=== PATIENT | male | born 1960 | race Caucasian/White ===

== ENCOUNTER → 2017-04-22 | Outpatient (CLI) | payer BC ==
[2017-04-22 14:23] LABS: Anion Gap 10 mmol/L; Blood Urea Nitrogen 22 mg/dL (9-20); Calcium 9.4 mg/dL (8.4-10.2); Carbon Dioxide 26 mmol/L (22-30); Chloride 106 mmol/L (98-107); Glucose 175 mg/dL (74-99); Potassium 4.2 mmol/L (3.5-5.1); Sodium 142 mmol/L (137-145)
[2017-04-22 14:59] LABS: Basophils # (A) 0.1 k/uL (0-0.2); Basophils % (A) 1 %; Eosinophils # (A) 0.3 k/uL (0-0.7); Eosinophils % (A) 4 %; HCT 43.5 % (39.0-53.0); HGB 14.8 gm/dL (13.0-17.5); Lymphocytes # (A) 1.8 k/uL (1.0-4.8); Lymphocytes % (A) 20 %; MCH 29.1 pg (25.0-35.0); MCV 85.8 fL (80.0-100.0); Mean Platelet Volume 6.8; Monocytes # (A) 0.6 k/uL (0-1.0); Monocytes % (A) 7 %; Neutrophils % (A) 66 %; Platelet Count 301 k/uL (150-450); RBC 5.07 m/uL (4.30-5.90); RDW 12.8 % (11.5-15.5)
--- NOTE | 2017-04-22 16:46 | XR ---
EXAMINATION TYPE: XR KUB DATE OF EXAM: 04/22/2017 CLINICAL DATA: 56-year-old male presurgical evaluation, [facility] COMPARISON: 02/07/2010 FINDINGS: Nonobstructive bowel gas pattern. Supine imaging limited for assessment of free air. Scatte red mild to moderate stool in the right and transverse colons. Air extends distally to the rectum. No suspicious calcifications seen. Severe degenerative changes at the right hip. Bony deformity at the femoral head neck junction. Left hip total arthroplasty placed in the interval. IMPRESSION: Nonobstructive bowel gas pattern. Scattered mild to moderate stool. Severe right hip oste oarthrosis and possible congenital or posttraumatic deformity at the right femoral head neck junction .
== END | disposition home or self-care (01) ==
LOC: RADXRMAIN 13:23
PROVIDERS: ATTEND Physician Assistant
DX: Z01.818 Encounter for other preprocedural examination (principal); R10.9 Unspecified abdominal pain; N20.0 Calculus of kidney; Z79.899 Other long term (current) drug therapy
CPT/HCPCS: 36415; 74018; 80048; 85025

== ENCOUNTER 2018-06-16 13:25 | Inpatient (IN) | payer BC ==
[2018-06-16] MEDS ORDERED: SODIUM CHLORIDE 0.9% 500 ML 500 ML IV STA (13:54)
[2018-06-16] MEDS ORDERED: DILTIAZEM DRIP BOLUS FROM BAG 1 MG SOLN IV ONE (13:59)
--- NOTE | 2018-06-16 14:00 | ED ---
General Adult HPI - General Chief complaint: Recheck/Abnormal Lab/Rx Stated complaint: abn EKG Time Seen by Provider: 06/16/18 13:50 Source: patient, family, RN notes reviewed Mode of arrival: ambulatory Limitations: no limitations - History of Present Illness Initial comments: 58-year-old male with a past medical history of diabetes, hypertension presents to the emergency department due to new onset of atrial fibrillation. Patient states he has had a cold for the past several days so went to see his primary care physician when it was noted he was in atrial fibrillation. Patient does not have a history of atrial ablation. Patient does not feel lightheaded or short of breath. Patient states he is mainly concerned about his cough. Patient is not noted to be on any blood thinners.Patient has no other complaints at this time including shortness of breath, chest pain, abdominal pain, nausea or vomiting, headache, or visual changes. - Related Data Home Medications Medication Instructions Recorded Confirmed Atorvastatin [Lipitor] 20 mg PO DAILY 05/27/15 04/23/17 Losartan Potassium [Cozaar] 100 mg PO DAILY 05/27/15 04/23/17 Qnasl 80mcg 2 spray EA NOSTRIL DAILY 05/30/15 04/23/17 Amoxicillin 500 mg PO ONCE PRN 06/01/15 04/23/17 sitaGLIPtin [Januvia] 100 mg PO DAILY 04/23/17 04/23/17 metFORMIN HCL 1,000 mg PO BID 06/16/18 06/16/18 Allergies Allergy/AdvReac Type Severity Reaction Status Date / Time grass pollen Allergy ITCHY EYES Verified 06/16/18 15:26 Review of Systems ROS Statement: Those systems with pertinent positive or pertinent negative responses have been documented in the HPI. ROS Other: All systems not noted in ROS Statement are negative. Past Medical History Past Medical History: Diabetes Mellitus, Hypertension History of Any Multi-Drug Resistant Organisms: None Reported Past Surgical History: Appendectomy, Orthopedic Surgery, Tonsillectomy Additional Past Surgical History / Comment(s): nasal polyps. Past Psychological History: No Psychological Hx Reported Smoking Status: Never smoker Past Alcohol Use History: None Reported Past Drug Use History: None Reported General Exam Limitations: no limitations General appearance: alert, in no apparent distress Head exam: Present: atraumatic, normocephalic, normal inspection Eye exam: Present: normal appearance, PERRL, EOMI. Absent: scleral icterus, conjunctival injection, periorbital swelling ENT exam: Present: normal exam, normal oropharynx, mucous membranes moist, TM's normal bilaterally, normal external ear exam Neck exam: Present: normal inspection, full ROM. Absent: tenderness, meningismus, lymphadenopathy Respiratory exam: Present: normal lung sounds bilaterally. Absent: respiratory distress, wheezes, rales, rhonchi, stridor Cardiovascular Exam: Present: tachycardia, irregular rhythm. Absent: systolic murmur, diastolic murmur, rubs, gallop, clicks Neurological exam: Present: alert, oriented X3, CN II-XII intact Psychiatric exam: Present: normal affect, normal mood Course Vital Signs 06/16/18 06/16/18 06/16/18 13:36 13:52 13:53 Temperature 98.2 F Pulse Rate 47 L 124 H Respiratory 16 18 18 Rate Blood Pressure 115/61 130/93 O2 Sat by Pulse 96 97 Oximetry 06/16/18 06/16/18 06/16/18 14:37 15:07 16:12 Temperature Pulse Rate 122 H 103 H 123 H Respiratory 18 18 16 Rate Blood Pressure 121/76 118/95 125/107 O2 Sat by Pulse 98 98 97 Oximetry 06/16/18 16:20 Temperature 98.3 F Pulse Rate Respiratory Rate Blood Pressure O2 Sat by Pulse Oximetry - Reevaluation(s) Reevaluation #1: 06/16/18 14:13 Blood pressure is stable at this time 130/93 06/16/18 16:55 35 minutes of critical care time was performed in multiple reassessments of the patient, heparin and Cardizem orders, management of new onset atrial fibrillation with heart rate reaching up to 150s. EKG Findings - EKG Comments: EKG Findings:: Atrial fibrillation with RVR, vent rate 125, QRS 84, QTC 401 Medical Decision Making - Medical Decision Making 58-year-old male with a past medical history significant for diabetes, hypertension presents for new onset atrial fibrillation. Patient states he saw his primary care provider today for a cold when he was noted to be in atrial fibrillation. Does not feel lightheaded or short of breath. Patient is noted to have a heart rate anywhere between 100 - 150 at the highest. Blood pressure is stable. EKG does show atrial fibrillation with a ventricular rate in the 120s. Patient is well-appearing throughout his stay. CBC is unremarkable although there is a mild white count of 11.1 which is likely reactive. CMP does show a creatinine of 1.76 however patient denies any past renal disease. Patient was given fluids. Troponin and influenza are negative. Chest x-ray shows cardiomegaly. Patient was started on a 5 mg Cardizem bolus with a 5 mg drip. Discussed this with Dr. Claros who would like to maintain patient on a 5 mg drip. Patient also started on heparin to reduce risk of clot. Patient will be admitted to the hospital with cardiology consult. - Lab Data Result diagrams: 06/16/18 13:52 06/16/18 13:52 Lab Results 06/16/18 06/16/18 06/16/18 Range/Units 13:52 13:52 13:52 WBC 11.1 H (3.8-10.6) k/uL RBC 5.53 (4.30-5.90) m/uL Hgb 16.1 (13.0-17.5) gm/dL Hct 45.8 (39.0-53.0) % MCV 82.8 (80.0-100.0) fL MCH 29.2 (25.0-35.0) pg MCHC 35.2 (31.0-37.0) g/dL RDW 13.0 (11.5-15.5) % Plt Count 258 (150-450) k/uL Neutrophils % 72 % Lymphocytes % 17 % Monocytes % 7 % Eosinophils % 2 % Basophils % 0 % Neutrophils # 7.9 H (1.3-7.7) k/uL Lymphocytes # 1.8 (1.0-4.8) k/uL Monocytes # 0.8 (0-1.0) k/uL Eosinophils # 0.2 (0-0.7) k/uL Basophils # 0.1 (0-0.2) k/uL PT 10.5 (9.0-12.0) sec INR 1.0 (<1.2) APTT 23.0 (22.0-30.0) sec Sodium 141 (137-145) mmol/L Potassium 4.3 (3.5-5.1) mmol/L Chloride 111 H (98-107) mmol/L Carbon Dioxide 21 L (22-30) mmol/L Anion Gap 9 mmol/L BUN 17 (9-20) mg/dL Creatinine 1.76 H (0.66-1.25) mg/dL Est GFR (CKD-EPI)AfAm 48 (>60 ml/min/1.73 sqM) Est GFR (CKD-EPI)NonAf 42 (>60 ml/min/1.73 sqM) Glucose 143 H (74-99) mg/dL Calcium 9.1 (8.4-10.2) mg/dL Magnesium 1.9 (1.6-2.3) mg/dL Total Bilirubin 2.4 H (0.2-1.3) mg/dL AST 16 L (17-59) U/L ALT 21 (21-72) U/L Alkaline Phosphatase 89 (38-126) U/L Troponin I (0.000-0.034) ng/mL Total Protein 6.3 (6.3-8.2) g/dL Albumin 3.6 (3.5-5.0) g/dL Influenza Type A RNA (Not Detectd) Influenza Type B (PCR) (Not Detectd) 06/16/18 06/16/18 Range/Units 13:52 14:43 WBC (3.8-10.6) k/uL RBC (4.30-5.90) m/uL Hgb (13.0-17.5) gm/dL Hct (39.0-53.0) % MCV (80.0-100.0) fL MCH (25.0-35.0) pg MCHC (31.0-37.0) g/dL RDW (11.5-15.5) % Plt Count (150-450) k/uL Neutrophils % % Lymphocytes % % Monocytes % % Eosinophils % % Basophils % % Neutrophils # (1.3-7.7) k/uL Lymphocytes # (1.0-4.8) k/uL Monocytes # (0-1.0) k/uL Eosinophils # (0-0.7) k/uL Basophils # (0-0.2) k/uL PT (9.0-12.0) sec INR (<1.2) APTT (22.0-30.0) sec Sodium (137-145) mmol/L Potassium (3.5-5.1) mmol/L Chloride (98-107) mmol/L Carbon Dioxide (22-30) mmol/L Anion Gap mmol/L BUN (9-20) mg/dL Creatinine (0.66-1.25) mg/dL Est GFR (CKD-EPI)AfAm (>60 ml/min/1.73 sqM) Est GFR (CKD-EPI)NonAf (>60 ml/min/1.73 sqM) Glucose (74-99) mg/dL Calcium (8.4-10.2) mg/dL Magnesium (1.6-2.3) mg/dL Total Bilirubin (0.2-1.3) mg/dL AST (17-59) U/L ALT (21-72) U/L Alkaline Phosphatase (38-126) U/L Troponin I <0.012 (0.000-0.034) ng/mL Total Protein (6.3-8.2) g/dL Albumin (3.5-5.0) g/dL Influenza Type A RNA Not Detected (Not Detectd) Influenza Type B (PCR) Not Detected (Not Detectd) Disposition Clinical Impression: New onset atrial fibrillation, Acute kidney injury Disposition: ADMITTED IP TO THIS HOSP Condition: Fair Is patient prescribed a controlled substance at d/c from ED?: No Referrals: Negrito Bullock DO [Primary Care Provider] - 1-2 days Time of Disposition: 15:26
[2018-06-16 14:07] LABS: Basophils # (A) 0.1 k/uL (0-0.2); Basophils % (A) 0 %; Eosinophils # (A) 0.2 k/uL (0-0.7); Eosinophils % (A) 2 %; HCT 45.8 % (39.0-53.0); HGB 16.1 gm/dL (13.0-17.5); Lymphocytes # (A) 1.8 k/uL (1.0-4.8); Lymphocytes % (A) 17 %; MCH 29.2 pg (25.0-35.0); MCHC 35.2 g/dL (31.0-37.0); MCV 82.8 fL (80.0-100.0); Mean Platelet Volume 7.1; Monocytes # (A) 0.8 k/uL (0-1.0); Monocytes % (A) 7 %; Neutrophils # (A) 7.9 k/uL (1.3-7.7); Neutrophils % (A) 72 %; Platelet Count 258 k/uL (150-450); RBC 5.53 m/uL (4.30-5.90); WBC 11.1 k/uL (3.8-10.6)
[2018-06-16 14:19] LABS: Albumin 3.6 g/dL (3.5-5.0); Calcium 9.1 mg/dL (8.4-10.2); Magnesium 1.9 mg/dL (1.6-2.3); Potassium 4.3 mmol/L (3.5-5.1); Total Bilirubin 2.4 mg/dL (0.2-1.3); Total Protein 6.3 g/dL (6.3-8.2)
[2018-06-16 14:22] LABS: Prothrombin Time 10.5 sec (9.0-12.0)
--- NOTE | 2018-06-16 14:36 | XR ---
EXAMINATION TYPE: XR chest 2V DATE OF EXAM: 06/16/2018 COMPARISON: NONE HISTORY: Chest pain TECHNIQUE: Frontal and lateral views of the chest are obtained. FINDINGS: There is no focal air space opacity, pleural effusion, or pneumothorax seen. The cardiac silhouette size is enlarged, patient is rotated. The osseous structures are intact. There are overl erika cardiac leads. IMPRESSION: Cardiomegaly
[2018-06-16] MEDS: DILTIAZEM 125 MG in SODIUM CHLORIDE 0.9% 100 ML IV SCH (14:42)
[2018-06-16] MEDS ORDERED: HEPARIN SODIUM,PORCINE 5,000 UNIT/ML 1 ML VIAL IV ONE (15:27)
[2018-06-16] MEDS: HEPARIN SOD,PORK IN 0.45% NACL 25,000 UNIT in 0.45% NACL 1 250ML.BAG IV SCH (16:09)
[2018-06-16 17:29] LABS: Glucose,Whole Blood 125 mg/dL (75-99)
[2018-06-16] MEDS: INSULIN ASPART (NovoLOG) 100 UNIT/ML VIAL SQ SCH ×2 (17:46→21:56)
[2018-06-16 18:01] VITALS: BMI 35.9
[2018-06-16 21:14] LABS: Glucose,Whole Blood 115 mg/dL (75-99)
[2018-06-16] MEDS ORDERED: AMOXICILLIN 500 MG CAP PO PRN (21:15)
[2018-06-16] MEDS: guaiFENesin 600 MG TABLET.ER PO SCH (22:03)
[2018-06-16] MEDS: metFORMIN 500 MG TAB PO SCH (22:04)
[2018-06-16] MEDS: HEPARIN SODIUM,PORCINE 5,000 UNIT/ML 1 ML VIAL IV PRN (22:35)
[2018-06-17 05:32] LABS: Basophils # (A) 0.1 k/uL (0-0.2); Basophils % (A) 1 %; Eosinophils # (A) 0.4 k/uL (0-0.7); Eosinophils % (A) 4 %; HGB 14.8 gm/dL (13.0-17.5); Lymphocytes # (A) 1.9 k/uL (1.0-4.8); Lymphocytes % (A) 20 %; MCH 28.9 pg (25.0-35.0); MCHC 34.5 g/dL (31.0-37.0); MCV 83.8 fL (80.0-100.0); Mean Platelet Volume 7.2; Monocytes # (A) 0.7 k/uL (0-1.0); Monocytes % (A) 7 %; Neutrophils # (A) 6.2 k/uL (1.3-7.7); Neutrophils % (A) 66 %; Platelet Count 205 k/uL (150-450); RBC 5.13 m/uL (4.30-5.90); RDW 13.1 % (11.5-15.5); WBC 9.4 k/uL (3.8-10.6)
[2018-06-17 06:36] LABS: Glucose,Whole Blood 122 mg/dL (75-99)
[2018-06-17] MEDS: INSULIN ASPART (NovoLOG) 100 UNIT/ML VIAL SQ SCH ×4 (06:37→21:24)
[2018-06-17] MEDS: HEPARIN SODIUM,PORCINE 5,000 UNIT/ML 1 ML VIAL IV PRN (07:01)
[2018-06-17] MEDS: guaiFENesin 600 MG TABLET.ER PO SCH ×2 (08:27→20:29)
[2018-06-17] MEDS: LOSARTAN 50 MG TAB PO SCH (08:27)
[2018-06-17] MEDS: ATORVASTATIN 20 MG TAB PO SCH (08:28)
[2018-06-17] MEDS: metFORMIN 500 MG TAB PO SCH ×2 (08:28→20:29)
[2018-06-17] MEDS: QNASL EA NOSTRIL SCH (08:29)
[2018-06-17] MEDS: LINAGLIPTIN 5 MG TABLET PO SCH (08:35)
--- NOTE | 2018-06-17 10:29 | P.CRDCN ---
History of Present Illness History of present illness: This is Dr. Vaughn dictating a consult on this patient The patient was interviewed and examined by me IMPRESSION / ASSESSMENT: Atrial fibrillation with RVR Type 2 diabetes hemoglobin A1c greater than 9 line hypertension essential 2-D echo report pending but possibly reduced LV systolic function based upon preliminary assessment PLAN: Start metoprolol succinate 100 mg by mouth daily 1 dose now Anticoagulate with either Coumadin or the newer agents, ELIQUIS 5 mg twice daily, creatinine 1.76, weight 114 kg, age 58 HPI patient states he came in with symptoms of an upper respiratory infection No palpitations no chest pain no shortness of breath chest cough. No chest pain no abdominal pain no nausea vomiting he did feel a little feverish. He was found to be in atrial fibrillation with a rapid ventricular response. 2 serial troponins are normal. Creatinine was increased 1.76 He is a history of hypertension and diabetes He is on atorvastatin losartan and and diabetes medications He is a never smoker He sees Dr. Solorzano. Previously he was seeing Dr. Vernon Twelve-lead ECG shows atrial fibrillation with RVR up to 125 beats a minute He underwent 2-D echo study today and the pulmonary report is that he has reduced LV systolic function ROS: No fever chills or rigors, no cough, phlegm or expectoration, no nausea, vomiting or diarrhea, no hematuria, dysuria, no musculoskeletal complaints, no strokes or seizures, no skin lesions. EXAMINATION: Blood pressure 139/92 mmHg, afebrile, pulse rate on IV Cardizem is in the 80s and 90s, breathing is normal nonlabored Breath sounds are reduced bilaterally no rhonchi no crackles Heart sounds are irregular no murmurs or gallops or rub Abdomen soft Extended is warm no edema REVIEW OF LABS, ECG & MEDICAL DATA Normal white count normal hemoglobin Sodium 141 potassium 4.3 BUN 17 creatinine 1.76 2 normal troponins Past Medical History Past Medical History: Diabetes Mellitus, Hypertension History of Any Multi-Drug Resistant Organisms: None Reported Past Surgical History: Appendectomy, Orthopedic Surgery, Tonsillectomy Additional Past Surgical History / Comment(s): nasal polyps. Past Anesthesia/Blood Transfusion Reactions: No Reported Reaction Past Psychological History: No Psychological Hx Reported Smoking Status: Never smoker Past Alcohol Use History: None Reported Past Drug Use History: None Reported - Past Family History Father Family Medical History: Coronary Artery Disease (CAD), Myocardial Infarction ([place]) Additional Family Medical History / Comment(s): one month post CABG Mother Family Medical History: Cancer, CVA/TIA Additional Family Medical History / Comment(s): Breast Medications and Allergies Home Medications Medication Instructions Recorded Confirmed Type Atorvastatin [Lipitor] 20 mg PO DAILY 05/27/15 06/16/18 History Losartan Potassium [Cozaar] 100 mg PO DAILY 05/27/15 06/16/18 History Qnasl 80mcg 2 spray EA NOSTRIL DAILY 05/30/15 06/16/18 History Amoxicillin 2,000 mg PO ONCE PRN 06/01/15 06/16/18 History sitaGLIPtin [Januvia] 100 mg PO DAILY 04/23/17 06/16/18 History metFORMIN HCL 1,000 mg PO BID 06/16/18 06/16/18 History Allergies Allergy/AdvReac Type Severity Reaction Status Date / Time grass pollen Allergy ITCHY EYES Verified 06/16/18 15:26 Physical Exam Vitals: Vital Signs Temp Pulse Pulse Resp BP BP Pulse Ox 06/17/18 09:30 98 06/17/18 08:00 98.4 F 84 20 132/90 96 06/17/18 04:00 97.4 F L 93 18 139/92 97 06/17/18 00:00 97.7 F 93 18 137/91 98 06/16/18 20:00 98.1 F 18 130/81 98 06/16/18 17:25 98.6 F 71 149/87 97 06/16/18 16:20 98.3 F 06/16/18 16:12 123 H 16 125/107 97 06/16/18 15:07 103 H 18 118/95 98 06/16/18 14:37 122 H 18 121/76 98 06/16/18 13:53 18 06/16/18 13:52 124 H 18 130/93 97 06/16/18 13:36 98.2 F 47 L 16 115/61 96 Intake and Output 06/16/18 06/17/18 06/17/18 22:59 06:59 14:59 Intake Total 304.506 352.623 Output Total 1 Balance 304.506 -1 352.623 Intake: Intake, IV Titration 64.506 112.623 Amount Heparin Sod,Pork in 0.45% 64.506 112.623 NaCl 25,000 unit In 0.45 % NaCl 1 250ml.bag @ 8. 819 UNITS/KG/HR 10.001 mls/hr IV .Q24H [facility] Rx#: [id number] Oral 240 240 Output: Stool 1 Other: # Voids 1 1 Weight 114.1 kg 114.6 kg Results 06/17/18 04:59 06/16/18 13:52 Cardiac Enzymes 06/16/18 06/16/18 06/16/18 Range/Units 13:52 13:52 21:00 AST 16 L (17-59) U/L Troponin I <0.012 <0.012 (0.000-0.034) ng/mL 06/17/18 Range/Units 01:50 AST (17-59) U/L Troponin I <0.012 (0.000-0.034) ng/mL Coagulation 06/16/18 06/16/18 06/17/18 Range/Units 13:52 21:00 04:59 PT 10.5 (9.0-12.0) sec APTT 23.0 28.9 40.2 H (22.0-30.0) sec CBC 06/16/18 06/17/18 Range/Units 13:52 04:59 WBC 11.1 H 9.4 (3.8-10.6) k/uL RBC 5.53 5.13 (4.30-5.90) m/uL Hgb 16.1 14.8 (13.0-17.5) gm/dL Hct 45.8 43.0 (39.0-53.0) % Plt Count 258 205 (150-450) k/uL Comprehensive Metabolic Panel 06/16/18 Range/Units 13:52 Sodium 141 (137-145) mmol/L Potassium 4.3 (3.5-5.1) mmol/L Chloride 111 H (98-107) mmol/L Carbon Dioxide 21 L (22-30) mmol/L BUN 17 (9-20) mg/dL Creatinine 1.76 H (0.66-1.25) mg/dL Glucose 143 H (74-99) mg/dL Calcium 9.1 (8.4-10.2) mg/dL AST 16 L (17-59) U/L ALT 21 (21-72) U/L Alkaline Phosphatase 89 (38-126) U/L Total Protein 6.3 (6.3-8.2) g/dL Albumin 3.6 (3.5-5.0) g/dL Current Medications Generic Name Dose Route Start Last Admin Trade Name Freq PRN Reason Stop Dose Admin Atorvastatin Calcium 20 mg 06/17/18 09:00 06/17/18 08:28 Lipitor PO 20 mg DAILY ROSA Administration Guaifenesin 1,200 mg 06/16/18 21:30 06/17/18 08:27 Mucinex PO 1,200 mg Q12HR ROSA Administration Heparin Sodium (Porcine) 0 unit 06/16/18 15:27 06/17/18 07:01 Heparin IV 2,875 unit PER PROTOCOL PRN Administration Low PTT Protocol Diltiazem HCl 125 mg/ Sodium 125 mls @ 5 mls/hr 06/16/18 14:15 06/16/18 14:42 Chloride IV 5 mg/hr .Q24H ROSA 5 mls/hr Administration 5 MG/HR Heparin Sodium/Sodium Chloride 250 mls @ 10.001 mls/hr 06/16/18 15:30 06/17/18 07:01 25,000 unit/ Sodium Chloride IV 13.8 units/kg/hr .Q24H ROSA 15.649 mls/hr Titration Protocol 8.819 UNITS/KG/HR Insulin Aspart 0 unit 06/16/18 17:30 06/17/18 06:37 Novolog SQ Not Given ACHS ROSA Protocol Linagliptin 5 mg 06/17/18 09:00 06/17/18 08:35 Tradjenta PO 5 mg DAILY ROSA Administration Losartan Potassium 100 mg 06/17/18 09:00 06/17/18 08:27 Cozaar PO 100 mg DAILY ROSA Administration Metformin HCl 1,000 mg 06/16/18 21:30 06/17/18 08:28 Glucophage PO 1,000 mg BID ROSA Administration Qnasl 80mcg 2 spray 06/17/18 09:00 06/17/18 08:29 EA NOSTRIL Not Given DAILY ROSA Intake and Output 06/16/18 06/17/18 06/17/18 22:59 06:59 14:59 Intake Total 304.506 352.623 Output Total 1 Balance 304.506 -1 352.623 Intake: Intake, IV Titration 64.506 112.623 Amount Heparin Sod,Pork in 0.45% 64.506 112.623 NaCl 25,000 unit In 0.45 % NaCl 1 250ml.bag @ 8. 819 UNITS/KG/HR 10.001 mls/hr IV .Q24H [facility] Rx#: [id number] Oral 240 240 Output: Stool 1 Other: # Voids 1 1 Weight 114.1 kg 114.6 kg 06/17/18 04:59 06/16/18 13:52
[2018-06-17] MEDS: HEPARIN SOD,PORK IN 0.45% NACL 25,000 UNIT in 0.45% NACL 1 250ML.BAG IV SCH ×2 (11:54→17:27)
[2018-06-17] MEDS: METOPROLOL SUCCINATE (ER) 100 MG TAB.ER.24H PO SCH (11:54)
[2018-06-17] MEDS: APIXABAN 5 MG TAB PO SCH ×2 (11:54→20:29)
--- NOTE | 2018-06-17 12:00 | ECHOF ---
Referral Reason:new onset afib MEASUREMENTS -------- HEIGHT: 177.8 cm WEIGHT: 113.9 kg BP: 139/92 RVIDd: 3.5 cm (< 3.3) IVSd: 1.3 cm (0.6 - 1.1) LVIDd: 5.8 cm (3.9 - 5.3) LVPWd: 1.4 cm (0.6 - 1.1) IVSs: 1.7 cm LVIDs: 5.1 cm LVPWs: 1.6 cm LA Diam: 4.5 cm (2.7 - 3.8) LAESV Index (A-L): 32.96 ml/m Ao Diam: 3.6 cm (2.0 - 3.7) AV Cusp: 2.0 cm (1.5 - 2.6) MV EXCURSION: 20.130 mm (> 18.000) MV EF SLOPE: 226 mm/s (70 - 150) EPSS: 0.7 cm RAP: 5.00 mmHg RVSP: 44.35 mmHg FINDINGS -------- Atrial fibrillation. This was a technically adequate study. The left ventricular size is normal. There is moderate concentric left ventricular hypertrophy. O verall left ventricular systolic function is mild-moderately impaired with, an EF between 40 - 45 %. The right ventricle is mildly enlarged. LA is midly dilated 29-33ml/m2. The right atrium is normal in size. There is mild aortic valve sclerosis. The mitral valve leaflets are mildly thickened. Mild mitral annular calcification present. Mild m itral regurgitation is present. Mild tricuspid regurgitation present. There is mild pulmonary hypertension. The right ventricular systolic pressure, as measured by Doppler, is 44.35mmHg. There is no pulmonic regurgitation present. The aortic root size is normal. Normal inferior vena cava with normal inspiratory collapse consistent with estimated right atrial pre ssure of 5 mmHg. There is no pericardial effusion. CONCLUSIONS -------- 1. Atrial fibrillation. 2. This was a technically adequate study. 3. The left ventricular size is normal. 4. There is moderate concentric left ventricular hypertrophy. 5. Overall left ventricular systolic function is mild-moderately impaired with, an EF between 40 - 45 %. 6. The right ventricle is mildly enlarged. 7. LA is midly dilated 29-33ml/m2. 8. The right atrium is normal in size. 9. There is mild aortic valve sclerosis. 10. The mitral valve leaflets are mildly thickened. 11. Mild mitral annular calcification present. 12. Mild mitral regurgitation is present. 13. Mild tricuspid regurgitation present. 14. There is mild pulmonary hypertension. 15. The right ventricular systolic pressure, as measured by Doppler, is 44.35mmHg. 16. There is no pulmonic regurgitation present. 17. The aortic root size is normal. 18. Normal inferior vena cava with normal inspiratory collapse consistent with estimated right atrial pressure of 5 mmHg. 19. There is no pericardial effusion. NURSE CHARGE RN: Monique Lee RDCS
[2018-06-17 12:03] LABS: Glucose,Whole Blood 107 mg/dL (75-99)
[2018-06-17 12:51] LABS: Hemoglobin A1C 7.4 % (4.0-6.0)
[2018-06-17] MEDS: DILTIAZEM 125 MG in SODIUM CHLORIDE 0.9% 100 ML IV SCH (13:21)
[2018-06-17 16:45] LABS: Glucose,Whole Blood 120 mg/dL (75-99)
[2018-06-17 21:18] LABS: Glucose,Whole Blood 108 mg/dL (75-99)
--- NOTE | 2018-06-17 21:43 | P.HPIM ---
History of Present Illness H&P Date: 06/17/18 This a pleasant 58-year-old white male who was admitted to the hospital after being directly sent from the office. He comes in with shortness of breath and tachycardia and apparent cold for a few days. He denied any chest pain he admits to shortness of breath especially with exertion. Is found to be in A. fib with rapid ventricular response of heart rate in the 130 he's feeling a little bit better today but still has his cold symptoms. His chest x-ray was normal he is currently undergoing echocardiogram at time of examination. Review of Systems GENERAL: Patient denies fever. Denies chills. EYES: Denies blurred vision. Denies vision changes. Denies eye pain. EARS, NOSE, MOUTH, & THROAT: Denies headache. Denies sore throat. Denies ear pain. RESPIRATORY: Admits to cough with shortness of breath. Denies sputum production. Denies hemoptysis. CARDIOVASCULAR: Denies chest pain or pressure. palpitations. Denies previous arrhythmias. GASTROINTESTINAL: Denies abdominal pain. Denies diarrhea. Denies constipation. Denies nausea. Denies vomiting. Denies heartburn. Denies blood in the stool. GENITOURINARY: Denies urinary frequency. Denies burning. Denies dysuria. Denies cloudy urine. Denies blood in the urine. MUSCULOSKELETAL: Denies myalgias. Denies joint swelling. Denies decreased range of motion beyond patients baseline. INTEGUMENTARY: Denies pruitis. Denies rash. PSYCHIATRIC: Denies suicidal or homicial ideations. ENDOCRINE: Admits to diabetes last A1c was 9.. HEMATOLOGIC: Denies bleeding disorders. Past Medical History Past Medical History: Diabetes Mellitus, Hypertension History of Any Multi-Drug Resistant Organisms: None Reported Past Surgical History: Appendectomy, Orthopedic Surgery, Tonsillectomy Additional Past Surgical History / Comment(s): nasal polyps. Past Anesthesia/Blood Transfusion Reactions: No Reported Reaction Past Psychological History: No Psychological Hx Reported Smoking Status: Never smoker Past Alcohol Use History: None Reported Past Drug Use History: None Reported - Past Family History Father Family Medical History: Coronary Artery Disease (CAD), Myocardial Infarction ([place]) Additional Family Medical History / Comment(s): one month post CABG Mother Family Medical History: Cancer, CVA/TIA Additional Family Medical History / Comment(s): Breast Medications and Allergies Home Medications Medication Instructions Recorded Confirmed Type Atorvastatin [Lipitor] 20 mg PO DAILY 05/27/15 06/16/18 History Losartan Potassium [Cozaar] 100 mg PO DAILY 05/27/15 06/16/18 History Qnasl 80mcg 2 spray EA NOSTRIL DAILY 05/30/15 06/16/18 History Amoxicillin 2,000 mg PO ONCE PRN 06/01/15 06/16/18 History sitaGLIPtin [Januvia] 100 mg PO DAILY 04/23/17 06/16/18 History metFORMIN HCL 1,000 mg PO BID 06/16/18 06/16/18 History Allergies Allergy/AdvReac Type Severity Reaction Status Date / Time grass pollen Allergy ITCHY EYES Verified 06/16/18 15:26 Physical Exam Osteopathic Statement: *. No significant issues noted on an osteopathic structural exam other than those noted in the History and Physical/Consult. Vitals: Vital Signs Temp Pulse Resp BP Pulse Ox 06/17/18 21:09 95 06/17/18 16:00 98.1 F 78 20 128/77 97 06/17/18 12:00 97.7 F 80 20 145/98 98 06/17/18 09:30 98 06/17/18 08:00 98.4 F 84 20 132/90 96 06/17/18 04:00 97.4 F L 93 18 139/92 97 06/17/18 00:00 97.7 F 93 18 137/91 98 Intake and Output 06/17/18 06/17/18 06/17/18 06:59 14:59 22:59 Intake Total 820.996 263.25 Output Total 1 Balance -1 820.996 263.25 Intake: Intake, IV Titration 340.996 23.25 Amount Diltiazem 125 mg In 113.25 23.25 Sodium Chloride 0.9% 100 ml @ 5 MG/HR 5 mls/hr IV .Q24H ROSA Rx#:[id number] Heparin Sod,Pork in 0.45% 227.746 NaCl 25,000 unit In 0.45 % NaCl 1 250ml.bag @ 8. 819 UNITS/KG/HR 10.001 mls/hr IV .Q24H ROSA Rx#: [id number] Oral 480 240 Output: Stool 1 Other: # Voids 1 1 Weight 114.6 kg GENERAL: This is a -58 year-old in no apparent distress at the time of examination. Pleasant and cooperative. HEENT: Head is atraumatic, normocephalic. Pupils are equal, round, and reactive to light. Sclerae anicteric. Conjunctivae are clear. Mucus membranes of the mouth are moist. Neck is supple. RESPIRATORY: Bilateral wheezes, . No use of accessory muscles. No chest wall tenderness is noted on palpation or with deep breathing. CARDIOVASCULAR: Irregular irregularity consistent with A. fib. GASTROINTESTINAL: No distention noted. Abdomen soft and round. Normal active bowel sounds auscultated x 4 quadrants. No pain or tenderness noted upon palpation. INTEGUMENTARY: No cyanosis. No jaundice. No rashes noted. No cellulitis noted. EXTREMITIES: 2+ peripheral pulses. No evidence of peripheral edema. No calf tenderness noted. NEUROLOGIC: Cranial nerves II-XII intact. PSYCHIATRIC: Awake, alert, and oriented X 3. Appropriate affect. Intact judgement and insight. Results CBC & Chem 7: 06/17/18 04:59 06/16/18 13:52 Labs: Abnormal Lab Results - Last 24 Hours (Table) 06/17/18 06/17/18 06/17/18 Range/Units 04:59 04:59 06:32 APTT 40.2 H (22.0-30.0) sec POC Glucose (mg/dL) 122 H (75-99) mg/dL Hemoglobin A1c 7.4 H (4.0-6.0) % 06/17/18 06/17/18 06/17/18 Range/Units 11:56 13:28 16:38 APTT 49.5 H (22.0-30.0) sec POC Glucose (mg/dL) 107 H 120 H (75-99) mg/dL Hemoglobin A1c (4.0-6.0) % 06/17/18 Range/Units 21:17 APTT (22.0-30.0) sec POC Glucose (mg/dL) 108 H (75-99) mg/dL Hemoglobin A1c (4.0-6.0) % Thrombosis Risk Factor Assmnt - DVT/VTE Prophylaxis DVT/VTE Prophylaxis: Pharmacologic Prophylaxis ordered - Choose All That Apply Each Factor Represents 1 point: Age 41-60 years Thrombosis Risk Factor Assessment Total Risk Factor Score: 1 Thrombosis Risk Factor Assessment Level: Low Risk Assessment and Plan (1) Diabetes type 2, uncontrolled Current Visit: Yes Status: Acute Code(s): E11.65 - TYPE 2 DIABETES MELLITUS WITH HYPERGLYCEMIA SNOMED Code(s): 263608144 (2) Atrial fibrillation with RVR Current Visit: Yes Status: Acute Code(s): I48.91 - UNSPECIFIED ATRIAL FIBRILLATION SNOMED Code(s): 493082201062863 (3) Acute bronchitis, viral Current Visit: Yes Status: Acute Code(s): J20.8 - ACUTE BRONCHITIS DUE TO OTHER SPECIFIED ORGANISMS SNOMED Code(s): 240062482 (4) Acute kidney injury Current Visit: Yes Status: Acute Code(s): N17.9 - ACUTE KIDNEY FAILURE, UNSPECIFIED SNOMED Code(s): 12977493 (5) New onset atrial fibrillation Current Visit: Yes Status: Acute Code(s): I48.91 - UNSPECIFIED ATRIAL FIBRILLATION SNOMED Code(s): 75857325 Plan: Admit patient to cardiac unit currently on heparin drip currently and DVT prophylaxis. Cardiology to consult and possible cardioversion. Check echocardiogram for possible ischemic event. Serial EKGs serial enzymes and progress.
[2018-06-18 05:49] LABS: Glucose,Whole Blood 141 mg/dL (75-99)
[2018-06-18] MEDS: INSULIN ASPART (NovoLOG) 100 UNIT/ML VIAL SQ SCH ×4 (06:09→21:23)
[2018-06-18 07:22] LABS: Basophils # (A) 0.1 k/uL (0-0.2); Basophils % (A) 0 %; Eosinophils # (A) 0.2 k/uL (0-0.7); Eosinophils % (A) 2 %; HCT 41.5 % (39.0-53.0); HGB 14.2 gm/dL (13.0-17.5); Lymphocytes # (A) 1.4 k/uL (1.0-4.8); Lymphocytes % (A) 12 %; MCH 29.3 pg (25.0-35.0); MCHC 34.3 g/dL (31.0-37.0); MCV 85.4 fL (80.0-100.0); Monocytes # (A) 0.9 k/uL (0-1.0); Monocytes % (A) 7 %; Neutrophils # (A) 9.6 k/uL (1.3-7.7); Neutrophils % (A) 78 %; Platelet Count 200 k/uL (150-450); RBC 4.86 m/uL (4.30-5.90); RDW 13.2 % (11.5-15.5); WBC 12.3 k/uL (3.8-10.6)
[2018-06-18] MEDS: METOPROLOL SUCCINATE (ER) 100 MG TAB.ER.24H PO SCH (08:40)
[2018-06-18] MEDS: LINAGLIPTIN 5 MG TABLET PO SCH (08:41)
[2018-06-18] MEDS: LOSARTAN 50 MG TAB PO SCH (08:41)
[2018-06-18] MEDS: ATORVASTATIN 20 MG TAB PO SCH (08:41)
[2018-06-18] MEDS: metFORMIN 500 MG TAB PO SCH ×2 (08:41→21:27)
[2018-06-18] MEDS: guaiFENesin 600 MG TABLET.ER PO SCH ×2 (08:41→21:27)
[2018-06-18] MEDS: APIXABAN 5 MG TAB PO SCH ×2 (08:41→21:27)
[2018-06-18] MEDS: QNASL EA NOSTRIL SCH (08:42)
[2018-06-18 10:30] LABS: Calcium 8.5 mg/dL (8.4-10.2); Potassium 4.5 mmol/L (3.5-5.1)
--- NOTE | 2018-06-18 10:56 | P.PN ---
Subjective Patient is resting comfortably in a chair. He says he still has a cold but he does not appear to be short of breath he denies any chest discomfort His ventricular rates during atrial fibrillation are better controlled on beta blockers, metoprolol succinate 100 mg by mouth daily Rhythm is irregular Breath sounds are clear no rhonchi no crackles Normal heart sounds no murmurs Abdomen soft nontender Minimal lower extremity edema 2-D echo report was reviewed left radical ejection fraction 40-45% RV enlargement Plan was discussed the patient and with Dr. Solorzano I would recommend continuing ELIQUIS and metoprolol succinate and proceeding with a SHANELL and electrical cardioversion on this admission line losartan and statins should continue Outpatient reevaluation of cardio myopathy to see if there is any improvement in LV function during sinus rhythm TSH is normal at 1.1 Objective - Vital Signs Vital signs: Vital Signs Temp 98.4 F 06/18/18 08:15 Pulse 78 06/18/18 08:15 Resp 18 06/18/18 08:15 BP 140/97 06/18/18 08:15 Pulse Ox 95 06/18/18 08:15 Intake & Output 06/17/18 06/18/18 06/18/18 18:59 06:59 18:59 Intake Total 1084.246 150 600 Balance 1084.246 150 600 Weight 116.2 kg Intake: Intake, IV Titration 364.246 Amount Diltiazem 125 mg In 136.50 Sodium Chloride 0.9% 100 ml @ 5 MG/HR 5 mls/hr IV .Q24H ROSA Rx#:[id number] Heparin Sod,Pork in 0.45% 227.746 NaCl 25,000 unit In 0.45 % NaCl 1 250ml.bag @ 8. 819 UNITS/KG/HR 10.001 mls/hr IV .Q24H ROSA Rx#: [id number] Oral 720 150 600 Other: # Voids 1 - Labs CBC & Chem 7: 06/18/18 06:43 06/18/18 06:43 Labs: Abnormal Lab Results - Last 24 Hours (Table) 06/17/18 06/17/18 06/17/18 Range/Units 04:59 11:56 13:28 WBC (3.8-10.6) k/uL Neutrophils # (1.3-7.7) k/uL APTT 49.5 H (22.0-30.0) sec Chloride (98-107) mmol/L Creatinine (0.66-1.25) mg/dL Glucose (74-99) mg/dL POC Glucose (mg/dL) 107 H (75-99) mg/dL Hemoglobin A1c 7.4 H (4.0-6.0) % 06/17/18 06/17/18 06/18/18 Range/Units 16:38 21:17 05:47 WBC (3.8-10.6) k/uL Neutrophils # (1.3-7.7) k/uL APTT (22.0-30.0) sec Chloride (98-107) mmol/L Creatinine (0.66-1.25) mg/dL Glucose (74-99) mg/dL POC Glucose (mg/dL) 120 H 108 H 141 H (75-99) mg/dL Hemoglobin A1c (4.0-6.0) % 06/18/18 06/18/18 Range/Units 06:43 06:43 WBC 12.3 H (3.8-10.6) k/uL Neutrophils # 9.6 H (1.3-7.7) k/uL APTT (22.0-30.0) sec Chloride 110 H (98-107) mmol/L Creatinine 1.72 H (0.66-1.25) mg/dL Glucose 137 H (74-99) mg/dL POC Glucose (mg/dL) (75-99) mg/dL Hemoglobin A1c (4.0-6.0) %
[2018-06-18 11:41] LABS: Glucose,Whole Blood 128 mg/dL (75-99)
--- NOTE | 2018-06-18 15:46 | P.PN ---
Subjective Progress Note Date: 06/18/18 Interval history:This a pleasant 58-year-old white male who was admitted to the hospital after being directly sent from the office. He comes in with shortness of breath and tachycardia and apparent cold for a few days. He denied any chest pain he admits to shortness of breath especially with exertion. Is found to be in A. fib with rapid ventricular response of heart rate in the 130 he's feeling a little bit better today but still has his cold symptoms. His chest x-ray was normal he is currently undergoing echocardiogram at time of examination. 06/18/2018 Telemetry reporting controlled atrial fibrillation. Troponins negative 3. Creatinine 1.72. Maintained on metoprolol, anticoagulated on Eliquis. Sitting up in chair, denies chest pain, palpitations or shortness of breath. Echo reporting moderately impaired LV function EF 40-45% with mild right ventricular enlargement.Evaluated by cardiology, recommending SHANELL with cardioversion. Afebrile, WBC 12.3.TSH normal. Objective - Vital Signs Vital signs: Vital Signs Temp 98.4 F 06/18/18 08:15 Pulse 78 06/18/18 08:15 Resp 18 06/18/18 08:15 BP 140/97 06/18/18 08:15 Pulse Ox 95 06/18/18 08:15 Intake & Output 06/17/18 06/18/18 06/18/18 18:59 06:59 18:59 Intake Total 1084.246 150 600 Balance 1084.246 150 600 Weight 116.2 kg Intake: Intake, IV Titration 364.246 Amount Diltiazem 125 mg In 136.50 Sodium Chloride 0.9% 100 ml @ 5 MG/HR 5 mls/hr IV .Q24H ROSA Rx#:[id number] Heparin Sod,Pork in 0.45% 227.746 NaCl 25,000 unit In 0.45 % NaCl 1 250ml.bag @ 8. 819 UNITS/KG/HR 10.001 mls/hr IV .Q24H ROSA Rx#: [id number] Oral 720 150 600 Other: # Voids 1 - Exam GENERAL: Alert and oriented test today, no acute distress, sitting up in a chair HEENT: Head is atraumatic, normocephalic. Pupils are equal, round, and reactive to light. Sclerae anicteric. Conjunctivae are clear. Mucus membranes of the mouth are moist. Neck is supple. RESPIRATORY: Respiratory effort normal, unlabored. Essentially clear, bilateral bases diminished, no rhonchi, no crackles CARDIOVASCULAR: Irregular irregularity consistent with A. fib., Controlled ventricular rate GASTROINTESTINAL: Abdomen soft, nondistended. Nontender .Normal active bowel sounds . No masses palpable .No guarding or rigidity INTEGUMENTARY: No cyanosis. No jaundice. No rashes noted. No cellulitis noted. EXTREMITIES: 2+ peripheral pulses. Trace peripheral edema. No calf tenderness noted. NEUROLOGIC: Cranial nerves II-XII intact. No focal deficits. PSYCHIATRIC: Awake, alert, and oriented X 3. Appropriate affect. Intact judgement and insight. - Labs CBC & Chem 7: 06/18/18 06:43 06/18/18 06:43 Labs: Abnormal Lab Results - Last 24 Hours (Table) 06/17/18 06/17/18 06/17/18 Range/Units 04:59 11:56 13:28 WBC (3.8-10.6) k/uL Neutrophils # (1.3-7.7) k/uL APTT 49.5 H (22.0-30.0) sec Chloride (98-107) mmol/L Creatinine (0.66-1.25) mg/dL Glucose (74-99) mg/dL POC Glucose (mg/dL) 107 H (75-99) mg/dL Hemoglobin A1c 7.4 H (4.0-6.0) % 06/17/18 06/17/18 06/18/18 Range/Units 16:38 21:17 05:47 WBC (3.8-10.6) k/uL Neutrophils # (1.3-7.7) k/uL APTT (22.0-30.0) sec Chloride (98-107) mmol/L Creatinine (0.66-1.25) mg/dL Glucose (74-99) mg/dL POC Glucose (mg/dL) 120 H 108 H 141 H (75-99) mg/dL Hemoglobin A1c (4.0-6.0) % 06/18/18 06/18/18 Range/Units 06:43 06:43 WBC 12.3 H (3.8-10.6) k/uL Neutrophils # 9.6 H (1.3-7.7) k/uL APTT (22.0-30.0) sec Chloride 110 H (98-107) mmol/L Creatinine 1.72 H (0.66-1.25) mg/dL Glucose 137 H (74-99) mg/dL POC Glucose (mg/dL) (75-99) mg/dL Hemoglobin A1c (4.0-6.0) % Assessment and Plan Assessment: (1) Diabetes type 2, controlled Current Visit: Yes Status: Acute Code(s): E11.65 - TYPE 2 DIABETES MELLITUS WITH HYPERGLYCEMIA SNOMED Code(s): 526162480 (2) Atrial fibrillation with RVR Current Visit: Yes Status: Acute Code(s): I48.91 - UNSPECIFIED ATRIAL FIBRILLATION SNOMED Code(s): 465691132687004 (3) Acute bronchitis, viral Current Visit: Yes Status: Acute Code(s): J20.8 - ACUTE BRONCHITIS DUE TO OTHER SPECIFIED ORGANISMS SNOMED Code(s): 692382444 (4) Acute kidney injury Current Visit: Yes Status: Acute Code(s): N17.9 - ACUTE KIDNEY FAILURE, UNSPECIFIED SNOMED Code(s): 21455808 (5) New onset atrial fibrillation Current Visit: Yes Status: Acute Code(s): I48.91 - UNSPECIFIED ATRIAL FIBRILLATION SNOMED Code(s): 88783841 Plan: Continue current medication regime ,monitoring and symptomatic treatment. GI and DVT prophylaxis maintained. Anticoagulated on Eliquis. Scheduled for SHANELL with cardioversion as per cardiology tomorrow. Close monitoring of renal function with repeat labs ordered for a.m. The impression and plan of care has been dictated as directed. : I performed a history and examination of this patient, discussed the same with the dictator. I agree with the dictator's note ,documented as a scribe. Any additional findings or plans will be noted.
[2018-06-18 16:54] LABS: Glucose,Whole Blood 144 mg/dL (75-99)
[2018-06-18 20:44] LABS: Glucose,Whole Blood 149 mg/dL (75-99)
[2018-06-19] MEDS: LOSARTAN 50 MG TAB PO SCH (05:17)
[2018-06-19] MEDS: ATORVASTATIN 20 MG TAB PO SCH (05:17)
[2018-06-19] MEDS: METOPROLOL SUCCINATE (ER) 100 MG TAB.ER.24H PO SCH (05:17)
[2018-06-19] MEDS: guaiFENesin 600 MG TABLET.ER PO SCH ×2 (05:17→21:05)
[2018-06-19] MEDS: INSULIN ASPART (NovoLOG) 100 UNIT/ML VIAL SQ SCH ×4 (05:18→20:59)
[2018-06-19] MEDS: APIXABAN 5 MG TAB PO SCH ×2 (05:18→21:05)
[2018-06-19 05:58] LABS: Glucose,Whole Blood 121 mg/dL (75-99)
[2018-06-19] MEDS: BENZOCAINE SPRAY 1 CAN MUCOUS MEM ONE ×2 (07:22→07:24)
[2018-06-19] MEDS ORDERED: LIDOCAINE 1% INJ 10MG/ML (20 ML MDV) ONE (07:23)
[2018-06-19] MEDS ORDERED: PROPOFOL 10 MG/ML 20 ML VIAL IV ONE (07:23)
[2018-06-19] MEDS ORDERED: SODIUM CHLORIDE 0.9% 1,000 ML IV ONE ×2 (07:29)
[2018-06-19 07:31] LABS: Basophils # (A) 0.1 k/uL (0-0.2); Basophils % (A) 1 %; Eosinophils # (A) 0.3 k/uL (0-0.7); Eosinophils % (A) 2 %; HGB 14.4 gm/dL (13.0-17.5); Lymphocytes # (A) 1.5 k/uL (1.0-4.8); Lymphocytes % (A) 12 %; MCH 29.1 pg (25.0-35.0); MCHC 32.8 g/dL (31.0-37.0); MCV 88.6 fL (80.0-100.0); Mean Platelet Volume 7.1; Monocytes # (A) 0.8 k/uL (0-1.0); Monocytes % (A) 6 %; Neutrophils # (A) 9.3 k/uL (1.3-7.7); Neutrophils % (A) 77 %; Platelet Count 227 k/uL (150-450); RBC 4.97 m/uL (4.30-5.90); RDW 13.1 % (11.5-15.5); WBC 12.1 k/uL (3.8-10.6)
[2018-06-19 07:52] LABS: Calcium 8.7 mg/dL (8.4-10.2); Potassium 4.7 mmol/L (3.5-5.1)
[2018-06-19] MEDS ORDERED: DEXTROSE 5% IN WATER 100 ML with AMIODARONE 150 MG IV ONE (08:52)
--- NOTE | 2018-06-19 09:04 | ECHOT ---
TRANSESOPHAGEAL ECHOCARDIOGRAM DATE OF SERVICE: June 19, 2018 PERFORMING PHYSICIAN: Jones Rosa MD, drop count associate. PROCEDURE PERFORMED: Transesophageal echocardiogram. INDICATION: This is a 58-year-old gentleman who was admitted to the hospital with A. Fib with RVR and was diagnosed with cardiomyopathy with EF between 40% to 45%.. He was seen and evaluated by Dr. Vaughn who started the patient on oral anticoagulation and recommended proceeding with cardioversion and subsequently a heart catheterization on the patient as an outpatient. COMPLICATION: None. LEVEL OF SEDATION: Deep sedation was performed with CONTACT CENTER ANALYST in the room and with using propofol. PROCEDURE DESCRIPTION: After obtaining an informed consent, explaining the procedure, benefits, risks, complications and alternatives, the patient was brought to the transesophageal echocardiogram suite. A pulse oximetry and heart rate monitors were attached to the patient prior to the procedure. The patient's throat was sprayed using lidocaine locally. Following that, the patient was turned into left lateral position. A bite guard was placed and the patient was then sedated with the above doses of Versed and fentanyl in divided doses. Following that, the transesophageal echocardiogram probe was advanced through the bite guard into the mid esophagus where 2-D echocardiogram images as well as color Doppler images of various cardiac structures were obtained. We evaluated the interatrial septum using 2-D echocardiogram, color Doppler, and contrast study. The procedure was completed. There were no complications. FINDINGS: The left ventricular systolic function is mildly impaired with EF between 40% to 45%. The right ventricle appeared to be within normal limits for dimension. The left atrium appeared to be severely dilated. The left atrial appendage appeared to be free from any thrombus. The interatrial septum appeared to be intact without any evidence of shunt. The aortic valve appeared to be thickened and calcified without stenosis or regurgitation. The mitral valve seems to be also thickened with evidence of moderate to severe MR. There was moderate to severe tricuspid regurgitation seen. There was also trace pericardial effusion seen. CONCLUSION: 1. Mildly impaired left ventricular function with ejection fraction between 40% to 45%. and global hypokinesia. 2. Severely dilated left atrium. 3. Normal left atrial appendage without any evidence of thrombus. 4. Intact interatrial septum without any evidence of shunt. 5. Aortic sclerosis without stenosis or insufficiency. 6. Thickened mitral valve leaflets with moderate to severe mitral regurgitation. 7. Moderate to severe tricuspid regurgitation. 8. Trace pericardial effusion. MMODL / IJN: [id number] /
[2018-06-19 09:08] LABS: Glucose,Whole Blood 138 mg/dL (75-99)
--- NOTE | 2018-06-19 09:10 | CE ---
CARDIAC ELECTROPHYSIOLOGY REPORT DATE OF SERVICE: 06/19/2018 PERFORMING PHYSICIAN: Jones Rosa MD, blood bank laboratory technician. PROCEDURE PERFORMED: Cardioversion of atrial fibrillation. INDICATION: Atrial fibrillation associated with cardiomyopathy. PROCEDURE DESCRIPTION: After obtaining an informed consent and after performing transesophageal echocardiogram and left atrial thrombus was ruled out, we proceeded with cardioversion. The patient cardioverted from atrial fibrillation to normal sinus mechanism using 300 joules and third attempt. CONCLUSION: Successful cardioversion of atrial fibrillation to normal sinus mechanism using 300 joules and third attempt. MMODL / IJN: [id number] /
[2018-06-19] MEDS: metFORMIN 500 MG TAB PO SCH ×2 (09:24→21:05)
[2018-06-19] MEDS: LINAGLIPTIN 5 MG TABLET PO SCH (09:24)
[2018-06-19] MEDS: QNASL EA NOSTRIL SCH (09:26)
[2018-06-19] MEDS ORDERED: AMIODARONE 360 MG in DEXTROSE 5% IN WATER 200 ML IV ONE ×2 (09:30)
[2018-06-19 11:28] LABS: Glucose,Whole Blood 131 mg/dL (75-99)
--- NOTE | 2018-06-19 12:44 | P.PN ---
Progress Note - Text Patient underwent SHANELL and electrical cardioversion. He has bilateral atrial enlargement. Post cardioversion and starting him on IV amiodarone and tomorrow I will switch him to by mouth amiodarone Hopefully remains in sinus rhythm for reassessment of his LV function in the next few weeks This was discussed with the patient was then discussed in detail with the patient's She understands the plan ELIQUIS to continue 5 mg twice daily Continue cardio myopathy medications
--- NOTE | 2018-06-19 13:53 | CDI ---
Documentation Clarification Form Date: 06/19/2018 From: Lakia Carvalho Admit Date: 06/16/2018 4:10:00 PM Patient Name: Iwrin Long Visit Number: [id number] Discharge Date: ATTENTION: The Clinical Documentation Specialists (CDI) and [facility] Coding Staff appreciate your assistance in clarifying documentation. Please respond to the clarification below the line at the bottom and electronically sign. The CDI & [facility] Coding staff will review the response and follow-up if needed. Please note: Queries are made part of the Legal Health Record. If you have any questions, please contact the author of this message via ITS. Dr. Kedar Vaughn Atrial Fibrillation is documented in your consult and progress notes. History/Risk Factors: 58 year old male presents to the ED from PCP for shortness of breath and tachycardia Clinical Indicators: EKG/telemetry: Atrial fibrillation with Rapid ventricular response with premature ventricular or aberrantly conducted complexes Treatment: Cardio Version , Amiodarone, Consults: Cardiology EP In your professional opinion, can you please clarify the type of Atrial Fibrillation, if known? * Chronic/Permanent * Paroxysmal * Persistent * Other, please specify * Unable to determine (Last Revision: June 2017) MTDD
[2018-06-19] MEDS: AMIODARONE 300 MG in DEXTROSE 5% IN WATER 250 ML IV SCH ×4 (15:38→23:36)
--- NOTE | 2018-06-19 16:00 | P.PN ---
Subjective Progress Note Date: 06/19/18 Interval history:This a pleasant 58-year-old white male who was admitted to the hospital after being directly sent from the office. He comes in with shortness of breath and tachycardia and apparent cold for a few days. He denied any chest pain he admits to shortness of breath especially with exertion. Is found to be in A. fib with rapid ventricular response of heart rate in the 130 he's feeling a little bit better today but still has his cold symptoms. His chest x-ray was normal he is currently undergoing echocardiogram at time of examination. 06/18/2018 Telemetry reporting controlled atrial fibrillation. Troponins negative 3. Creatinine 1.72. Maintained on metoprolol, anticoagulated on Eliquis. Sitting up in chair, denies chest pain, palpitations or shortness of breath. Echo reporting moderately impaired LV function EF 40-45% with mild right ventricular enlargement.Evaluated by cardiology, recommending SHANELL with cardioversion. Afebrile, WBC 12.3.TSH normal. 06/19/2018 telemetry reporting atrial fibrillation with controlled ventricular rate.maintaining O2 sats in the mid to high 90s on room air . NPO, scheduled for SHANELL, cardioversion. Blood sugars controlled. Denies chest pain, palpitations or increased shortness of breath. Creatinine 1.7. Blood sugars controlled. Objective - Vital Signs Vital signs: Vital Signs Temp 97.4 F L 06/19/18 11:27 Pulse 78 06/19/18 11:27 Resp 18 06/19/18 11:27 BP 132/97 06/19/18 11:27 Pulse Ox 95 06/19/18 11:27 Intake & Output 06/18/18 06/19/18 06/19/18 18:59 06:59 18:59 Intake Total 1652 240 600 Output Total 2 Balance 1652 238 600 Weight 115.4 kg Intake: IV 400 Oral 1652 240 200 Output: Stool 2 Other: # Voids 3 - Exam GENERAL: Alert and oriented test today, no acute distress, sitting up in bed HEENT: Head is atraumatic, normocephalic. Pupils are equal, round, and reactive to light. Sclerae anicteric. Conjunctivae are clear. Mucus membranes of the mouth are moist. Neck is supple. RESPIRATORY: Respiratory effort normal, unlabored. Essentially clear, bilateral bases diminished, no rhonchi, no crackles CARDIOVASCULAR: Irregular irregularity consistent with A. fib., Controlled ventricular rate GASTROINTESTINAL: Abdomen soft, nondistended. Nontender .Normal active bowel sounds . No masses palpable .No guarding or rigidity INTEGUMENTARY: No cyanosis. No jaundice. No rashes noted. No cellulitis noted. EXTREMITIES: 2+ peripheral pulses. Trace peripheral edema. No calf tenderness noted. NEUROLOGIC: Cranial nerves II-XII intact. No focal deficits. PSYCHIATRIC: Awake, alert, and oriented X 3. Appropriate affect. Intact judgement and insight. - Labs CBC & Chem 7: 06/19/18 06:51 06/19/18 06:51 Labs: Abnormal Lab Results - Last 24 Hours (Table) 06/18/18 06/18/18 06/19/18 Range/Units 16:48 20:43 05:56 WBC (3.8-10.6) k/uL Neutrophils # (1.3-7.7) k/uL Chloride (98-107) mmol/L BUN (9-20) mg/dL Creatinine (0.66-1.25) mg/dL Glucose (74-99) mg/dL POC Glucose (mg/dL) 144 H 149 H 121 H (75-99) mg/dL 06/19/18 06/19/18 06/19/18 Range/Units 06:51 06:51 09:06 WBC 12.1 H (3.8-10.6) k/uL Neutrophils # 9.3 H (1.3-7.7) k/uL Chloride 108 H (98-107) mmol/L BUN 21 H (9-20) mg/dL Creatinine 1.70 H (0.66-1.25) mg/dL Glucose 130 H (74-99) mg/dL POC Glucose (mg/dL) 138 H (75-99) mg/dL 06/19/18 Range/Units 11:26 WBC (3.8-10.6) k/uL Neutrophils # (1.3-7.7) k/uL Chloride (98-107) mmol/L BUN (9-20) mg/dL Creatinine (0.66-1.25) mg/dL Glucose (74-99) mg/dL POC Glucose (mg/dL) 131 H (75-99) mg/dL Assessment and Plan Assessment: (1) Diabetes type 2, controlled Current Visit: Yes Status: Acute Code(s): E11.65 - TYPE 2 DIABETES MELLITUS WITH HYPERGLYCEMIA SNOMED Code(s): 436878546 (2) Atrial fibrillation with RVR Current Visit: Yes Status: Acute Code(s): I48.91 - UNSPECIFIED ATRIAL FIBRILLATION SNOMED Code(s): 558853046852811 (3) Acute bronchitis, viral Current Visit: Yes Status: Acute Code(s): J20.8 - ACUTE BRONCHITIS DUE TO OTHER SPECIFIED ORGANISMS SNOMED Code(s): 883916145 (4) Acute kidney injury Current Visit: Yes Status: Acute Code(s): N17.9 - ACUTE KIDNEY FAILURE, UNSPECIFIED SNOMED Code(s): 31858788 (5) New onset atrial fibrillation Current Visit: Yes Status: Acute Code(s): I48.91 - UNSPECIFIED ATRIAL FIBRILLATION SNOMED Code(s): 38732305 Plan: Continue current medication regime ,monitoring and symptomatic treatment. GI and DVT prophylaxis maintained. SHANELL with cardioversion pending. Close monitoring of renal function with repeat labs ordered for a.m. The impression and plan of care has been dictated as directed. : I performed a history and examination of this patient, discussed the same with the dictator. I agree with the dictator's note ,documented as a scribe. Any additional findings or plans will be noted.
[2018-06-19 16:41] LABS: Glucose,Whole Blood 83 mg/dL (75-99)
[2018-06-19 20:44] LABS: Glucose,Whole Blood 107 mg/dL (75-99)
[2018-06-20 06:29] LABS: Glucose,Whole Blood 134 mg/dL (75-99)
[2018-06-20] MEDS: INSULIN ASPART (NovoLOG) 100 UNIT/ML VIAL SQ SCH ×2 (06:37→11:49)
[2018-06-20 07:07] LABS: Basophils # (A) 0.1 k/uL (0-0.2); Basophils % (A) 0 %; Eosinophils # (A) 0.2 k/uL (0-0.7); Eosinophils % (A) 1 %; HCT 41.5 % (39.0-53.0); HGB 14.2 gm/dL (13.0-17.5); Lymphocytes # (A) 1.4 k/uL (1.0-4.8); Lymphocytes % (A) 10 %; MCH 29.3 pg (25.0-35.0); MCHC 34.1 g/dL (31.0-37.0); MCV 86.1 fL (80.0-100.0); Mean Platelet Volume 7.8; Monocytes # (A) 0.8 k/uL (0-1.0); Monocytes % (A) 6 %; Neutrophils # (A) 11.2 k/uL (1.3-7.7); Neutrophils % (A) 81 %; Platelet Count 245 k/uL (150-450); RBC 4.82 m/uL (4.30-5.90); RDW 14.2 % (11.5-15.5); WBC 13.8 k/uL (3.8-10.6)
[2018-06-20] MEDS: guaiFENesin 600 MG TABLET.ER PO SCH (08:03)
[2018-06-20] MEDS: APIXABAN 5 MG TAB PO SCH (08:04)
[2018-06-20] MEDS: METOPROLOL SUCCINATE (ER) 100 MG TAB.ER.24H PO SCH (08:04)
[2018-06-20] MEDS: LOSARTAN 50 MG TAB PO SCH (08:04)
[2018-06-20] MEDS: LINAGLIPTIN 5 MG TABLET PO SCH (08:04)
[2018-06-20] MEDS: metFORMIN 500 MG TAB PO SCH (08:04)
[2018-06-20] MEDS: ATORVASTATIN 20 MG TAB PO SCH (08:04)
[2018-06-20] MEDS: QNASL EA NOSTRIL SCH (08:08)
[2018-06-20 11:26] LABS: Glucose,Whole Blood 100 mg/dL (75-99)
[2018-06-20 11:40] VITALS: BP 139/90; PULSE 70; RESP 16; TEMP 97.4
--- NOTE | 2018-06-20 14:02 | P.DS ---
Providers Date of admission: 06/16/18 16:10 Expected date of discharge: 06/20/18 Attending physician: Negrito Bullock Consults: 06/16/18 15:28 Consult Physician Urgent Consulting Provider: Jones Rosa Consult Reason/Comments: new onset a fib Do you want consulting provider notified?: Yes Primary care physician: Negrito Bullock [facility] Course: Final Diagnoses: (1) New Onset Atrial fibrillation with RVR, status post SHANELL, successful cardioversion Current Visit: Yes Status: Acute Code(s): I48.91 - UNSPECIFIED ATRIAL FIBRILLATION SNOMED Code(s): 858581514349735 (2)Diabetes type 2, controlled Current Visit: Yes Status: Acute Code(s): E11.65 - TYPE 2 DIABETES MELLITUS WITH HYPERGLYCEMIA SNOMED Code(s): 721863974 (3) Acute bronchitis, viral Current Visit: Yes Status: Acute Code(s): J20.8 - ACUTE BRONCHITIS DUE TO OTHER SPECIFIED ORGANISMS SNOMED Code(s): 007130267 (4) Acute kidney injury, improving Current Visit: Yes Status: Acute Code(s): N17.9 - ACUTE KIDNEY FAILURE, UNSPECIFIED SNOMED Code(s): 45810554 Hospital course:This a pleasant 58-year-old white male who was admitted to the hospital after being directly sent from the office. He comes in with shortness of breath and tachycardia and apparent cold for a few days. He denied any chest pain he admits to shortness of breath especially with exertion. Is found to be in A. fib with rapid ventricular response of heart rate in the 130 he's feeling a little bit better today but still has his cold symptoms. His chest x-ray was normal he is currently undergoing echocardiogram at time of examination. 06/18/2018 Telemetry reporting controlled atrial fibrillation. Troponins negative 3. Creatinine 1.72. Maintained on metoprolol, anticoagulated on Eliquis. Sitting up in chair, denies chest pain, palpitations or shortness of breath. Echo reporting moderately impaired LV function EF 40-45% with mild right ventricular enlargement.Evaluated by cardiology, recommending SHANELL with cardioversion. Afebrile, WBC 12.3.TSH normal. 06/19/2018 telemetry reporting atrial fibrillation with controlled ventricular rate.maintaining O2 sats in the mid to high 90s on room air . NPO, scheduled for SHANELL, cardioversion. Blood sugars controlled. Denies chest pain, palpitations or increased shortness of breath. Creatinine 1.7. Blood sugars controlled. Patient underwent SHANELL, successful cardioversion. Bilateral atrial enlargement reported. IV amiodarone initiated post cardioversion, converted to oral. Anticoagulated on Eliquis. Telemetry sinus rhythm. Significant clinical improvement. Cleared by cardiology for discharge. Manual Amiodarone taper Rx obtained from cardiology. Patient is being discharged home in a stable condition with guarded prognosis. - Exam GENERAL: Alert and oriented test today, no acute distress RESPIRATORY: Respiratory effort normal, unlabored. Essentially clear, bilateral bases diminished, no rhonchi, no crackles CARDIOVASCULAR: Irregular irregularity consistent with A. fib., Controlled ventricular rate GASTROINTESTINAL: Abdomen soft, nondistended. Nontender .Normal active bowel sounds . NEUROLOGIC: No focal deficits. The impression and plan of care has been dictated as directed. : I performed a history and examination of this patient, discussed the same with the dictator. I agree with the dictator's note ,documented as a scribe. Any additional findings or plans will be noted. Time taken: 35 minutes Patient Condition at Discharge: Stable Plan - Discharge Summary Discharge Rx Participant: Yes New Discharge Prescriptions: New Apixaban [Eliquis] 5 mg PO BID #60 tab Metoprolol Succinate (ER) [Toprol XL] 100 mg PO DAILY #30 tab.er.24h guaiFENesin [Mucinex] 1,200 mg PO Q12HR tablet.er Amiodarone [Cordarone] 400 mg PO BID #60 tablet Continue Atorvastatin [Lipitor] 20 mg PO DAILY Losartan Potassium [Cozaar] 100 mg PO DAILY Qnasl 80mcg 2 spray EA NOSTRIL DAILY sitaGLIPtin [Januvia] 100 mg PO DAILY metFORMIN HCL 1,000 mg PO BID Discontinued Amoxicillin 2,000 mg PO ONCE PRN PRN Reason: PROPHYLAXIS FOR DENTAL Discharge Medication List Atorvastatin [Lipitor] 20 mg PO DAILY 05/27/15 [History] Losartan Potassium [Cozaar] 100 mg PO DAILY 05/27/15 [History] Qnasl 80mcg 2 spray EA NOSTRIL DAILY 05/30/15 [History] sitaGLIPtin [Januvia] 100 mg PO DAILY 04/23/17 [History] metFORMIN HCL 1,000 mg PO BID 06/16/18 [History] Amiodarone [Cordarone] 400 mg PO BID #60 tablet 06/20/18 [Rx] Apixaban [Eliquis] 5 mg PO BID #60 tab 06/20/18 [Rx] Metoprolol Succinate (ER) [Toprol XL] 100 mg PO DAILY #30 tab.er.24h 06/20/18 [Rx] guaiFENesin [Mucinex] 1,200 mg PO Q12HR tablet.er 06/20/18 [Rx] Follow up Appointment(s)/Referral(s): Jones Rosa MD [STAFF PHYSICIAN] - 06/30/18 3:30 pm Negrito Bullock DO [Primary Care Provider] - 06/25/18 8:20 am (Saturday) Ambulatory/Diagnostic Orders: Complete Blood Count w/diff [LAB.AMB] Time Frame: 3 Days, Location: None Selected Patient Instructions/Handouts: A-fib (Atrial Fibrillation) (DC), Transesophage al Echocardiogram (DC), Safe Use of Anticoagulants (DC), Cardioversion (DC) Activity/Diet/Wound Care/Special Instructions: Amiodarone taper Rx as per cardiology
--- NOTE | 2018-06-20 14:39 | P.PN ---
Subjective Patient is doing well. No dizziness lightheadedness no palpitations He remains in normal rhythm he looks comfortable No chest discomfort no shortness of breath Blood pressure 120 706 2 mmHg pulse rate in the 60s he is afebrile 97.9F normal respirations Heart sounds are normal no murmurs or gallops no rub Breath sounds are clear no rhonchi no crackles Abdomen is soft nontender Impression Persistent atrial fibrillation symptomatic Cardio myopathy Status post electrical cardioversion Plan Switched to oral amiodarone. I wrote up and amiodarone taper He will follow with Dr. Solorzano in the next 2 weeks so follow-up evaluation of LV function after maintenance of sinus rhythm and further management Objective - Vital Signs Vital signs: Vital Signs Temp 97.4 F L 06/20/18 11:39 Pulse 70 06/20/18 11:39 Resp 16 06/20/18 11:39 BP 139/90 06/20/18 11:39 Pulse Ox 95 06/20/18 11:39 Intake & Output 06/19/18 06/20/18 06/20/18 18:59 06:59 18:59 Intake Total 822 199.167 420 Output Total 200 Balance 622 199.167 420 Weight 115.1 kg Intake: IV 400 Intake, IV Titration 199.167 80 Amount Amiodarone 300 mg In 199.167 Dextrose 5% in Water 250 ml @ 0.5 MG/MIN 25 mls/hr IV .Q10H [facility] Rx#: [id number] Sodium Chloride 0.9% 1, 80 000 ml @ 0 mls/hr IV .[facility] Rx#:[id number] Oral 422 340 Output: Urine 200 Other: Voiding Method Toilet Toilet # Voids 1 2 - Labs CBC & Chem 7: 06/20/18 06:13 06/19/18 06:51 Labs: Abnormal Lab Results - Last 24 Hours (Table) 06/19/18 06/20/18 06/20/18 Range/Units 20:42 06:08 06:13 WBC 13.8 H (3.8-10.6) k/uL Neutrophils # 11.2 H (1.3-7.7) k/uL POC Glucose (mg/dL) 107 H 134 H (75-99) mg/dL 06/20/18 Range/Units 11:23 WBC (3.8-10.6) k/uL Neutrophils # (1.3-7.7) k/uL POC Glucose (mg/dL) 100 H (75-99) mg/dL
--- NOTE | 2018-06-23 13:22 | CDI ---
Documentation Clarification Form Date: 06/23/18 From: Milla Jarquin Phone: If questions call Darcy Sheffield @ [phone], Hours-8:30 am & 5 pm M- F Admit Date: 06/16/2018 4:10:00 PM Patient Name: Irwin Long Visit Number: [id number] Discharge Date: 06/20/2018 3:58:00 PM ATTENTION: The Clinical Documentation Specialists (CDI) and [facility] Coding Staff appreciate your assistance in clarifying documentation. Please respond to the clarification below the line at the bottom and electronically sign. The CDI & [facility] Coding staff will review the response and follow-up if needed. Please note: Queries are made part of the Legal Health Record. If you have any questions, please contact the author of this message via ITS. Dr. Negrito Bullock Acute renal injury was documented in the ED note, H&P and PNs 06/18, & . History/Risk Factors: persistent atrial fibrillation, cardiomyopathy, DM TII w hyperglycemia, HTN CR: 1.76, 7.72, 1.70 GFR: 42, 43, 43 Treatment: IV fluid hydration, renal function KIDGO defines PHILIP as the occurrence of any 1 of the following: Increase in serum creatinine level by 0.3 mg/dl, measured prospectively by at least 2 separate levels obtained within 48 hrs, or Increase in serum creatinine level to 1.5 times baseline or greater, which is known or presumed to have occurred within the prior 7 days, or A urine volume of less than 0.5 ml/kg/h for 6 hours or longer. In order to capture the severity of condition, please clarify if the condition signifies: Acute kidney injury ruled in Acute kidney injury ruled out Other, please specify Unable to determine Please continue to document in your progress notes and discharge summary in order to capture severity of illness and risk of mortality. Include clinical findings that support your diagnosis. MTDD
== END 2018-06-20 15:58 | disposition home or self-care (01) | DRG 309 ==
LOC: EC 13:25 → 3SCARD 16:10
PROVIDERS: ADMIT Family Medicine; ATTEND Family Medicine
PROC: 5A2204Z Restoration of Cardiac Rhythm, Single (ICD-10-PCS; 2018-06-19)
PROC: B246ZZ4 Ultrasonography of Right and Left Heart, Transesophageal (ICD-10-PCS; principal; 2018-06-19 07:30)
DX: I48.1 Persistent atrial fibrillation (principal); N17.9 Acute kidney failure, unspecified; I42.9 Cardiomyopathy, unspecified; E11.65 Type 2 diabetes mellitus with hyperglycemia; J20.8 Acute bronchitis due to other specified organisms; I10 Essential (primary) hypertension; Z79.84 Long term (current) use of oral hypoglycemic drugs; Z79.899 Other long term (current) drug therapy; Z91.048 Other nonmedicinal substance allergy status; Z90.49 Acquired absence of other specified parts of digestive tract; Z87.09 Personal history of other diseases of the respiratory system; Z82.49 Family history of ischemic heart disease and other diseases of the circulatory system; Z82.3 Family history of stroke; Z80.3 Family history of malignant neoplasm of breast
CPT/HCPCS: 36415; 71046; 80048; 80053; 83036; 83735; 84443; 84484; 85025; 85610; 85730; 87502; 92960; 93005; 93306; 93312; 93320; 93325; 94760; 96365; 96366; 96368; 96376; 99291

== ENCOUNTER → 2018-08-19 | Outpatient (CLI) | payer BC ==
[2018-08-19 17:46] LABS: HCT 45.1 % (39.0-53.0); HGB 15.1 gm/dL (13.0-17.5); MCH 29.2 pg (25.0-35.0); MCHC 33.5 g/dL (31.0-37.0); MCV 87.2 fL (80.0-100.0); Mean Platelet Volume 7.1; Platelet Count 243 k/uL (150-450); RBC 5.17 m/uL (4.30-5.90); RDW 13.7 % (11.5-15.5); WBC 10.4 k/uL (3.8-10.6)
[2018-08-19 17:47] LABS: Potassium 4.9 mmol/L (3.5-5.1)
== END | disposition home or self-care (01) ==
LOC: LABPAT 17:15
PROVIDERS: ATTEND Internal Medicine Interventional Cardiology
DX: Z01.812 Encounter for preprocedural laboratory examination (principal); I10 Essential (primary) hypertension; I42.8 Other cardiomyopathies
CPT/HCPCS: 36415; 80051; 82565; 84520; 85027

== ENCOUNTER → 2018-08-26 | Day surgery (SDC) | payer BC ==
[2018-08-21 15:39] VITALS: BMI 34.4
[~2018-08-26] MED LIST: ALPRAZolam 0.25 MG TAB PO PRN; ALPRAZolam 0.5 MG TAB PO PRN; ASPIRIN 325 MG TAB PO STA; ATORVASTATIN 80 MG TAB PO STA; HEPARIN SODIUM 1,000 UN/ML (10ML VL) IV ONE; HEPARIN SODIUM 1,000 UN/ML (10ML VL) ONE; IOPAMIDOL-370 125ML BTL INJ ONE; IV FLUID CONTINUATION 800 ML IV ONE; LIDOCAINE 1% INJ 10MG/ML (20 ML MDV) ONE; MIDAZOLAM (PF) 2 MG/2 ML VIAL IV ONE; NITROGLYCERIN SL TABS 0.4 MG TAB SUBLINGUAL PRN; RX INFO: IV CONTRAST WAS GIVEN 1 EACH MISC MISCELLANE PRN; SODIUM CHLORIDE 0.9% 1,000 ML IV SCH; SODIUM CHLORIDE 0.9% 1,000 ML in EMPTY BAG 1 BAG IV ONE; VERAPAMIL 2.5 MG/ML 2 ML AMP ONE; fentaNYL (PF) 50 MCG/ML 2 ML AMP IV ONE; fentaNYL (PF) 50 MCG/ML 2 ML AMP ONE
[2018-08-26 09:01] LABS: Glucose,Whole Blood 142 mg/dL (75-99)
[2018-08-26 09:02] VITALS: RESP 18; TEMP 97.8
--- NOTE | 2018-08-26 09:35 | XR ---
EXAMINATION TYPE: XR KUB DATE OF EXAM: 08/26/2018 9:18 AM CLINICAL HISTORY: Kidney stone. TECHNIQUE: Two Supine KUB images of the abdomen are obtained. COMPARISON: Abdominal x-ray April 22, 2017. FINDINGS: Scattered gas is seen in non-distended small bowel loops. Gas and fecal material is seen in non-distended colon. Punctate densities inferior L4 level could reflect ureter calculi. Lung bases a re clear. Metallic hardware from left hip surgery partially imaged. Advanced right hip degenerative c hange with old healed fracture redemonstrated IMPRESSION: Possible tiny left ureter calculi though would favor phleboliths. Overall nonobstructive bowel gas pattern. Advise CT to better evaluate.
[2018-08-26] MEDS: VERAPAMIL SYRINGE (5 MG/10 ML) INTRAARTER ONE ×2 (11:03→11:11)
--- NOTE | 2018-08-26 12:07 | CC ---
CARDIAC CATHETERIZATION REPORT DATE OF SERVICE: August 26, 2018 PERFORMING PHYSICIAN: Jones Rosa MD, radio repairman. PROCEDURE PERFORMED: 1. Selective right and left coronary angiogram. 2. Left heart catheterization. INDICATION: This is a 58-year-old gentleman with history of paroxysmal atrial fibrillation, diabetes, hypertension, and dyslipidemia, was having symptoms of shortness of breath and fatigue. He underwent an echocardiogram which revealed cardiomyopathy with EF around 40%. Because of that, a heart catheterization was advised to rule out severe CAD. APPROACH: Right radial artery. COMPLICATION: None. LEVEL OF SEDATION: Moderate with sedation length of 13 minutes. PROCEDURE DESCRIPTION: After obtaining an informed consent, the patient was brought to the cardiac woven label designer. The right radial artery was cannulated using micropuncture technique, the micropuncture wire passed easily then I placed a 6-Maori sheath in the right radial artery. After that, I gave the patient 10,000 units of heparin IV and I did 2 mg of verapamil IA. Subsequently, I did selective right and left coronary angiogram using JR4 and JL3.5 catheters. Left heart catheterization was performed using the JL3.5 and I did pullback catheter. The procedure was completed without any complication. SELECTIVE CORONARY ANGIOGRAM: 1. The right coronary artery is a large caliber vessel. It is a dominant vessel and appears to be angiographically normal. It distally bifurcates into PDA and PLV branches. The PDA has mild disease only. 2. The left main is angiographically normal. It bifurcates into the left circumflex and left anterior descending artery. 3. The left circumflex is a large caliber vessel. It is a nondominant vessel. The proximal circumflex appears to be normal. It gives rise into a large OM branch which bifurcates into 2 branches and it continued after that as a small- caliber vessel in the AV groove. The first OM branch appeared to be normal. 4. The LAD: The proximal LAD appeared to be angiographically normal. The mid LAD is normal and the LAD distally appeared to be normal as well. The LAD gives rise into 2 diagonal branches in the midportion. HEMODYNAMICS: The left ventricular end-diastolic pressure was about 10 mmHg without significant gradient across the aortic valve. CONCLUSION: Normal coronary angiogram. POSTPROCEDURE MANAGEMENT: 1. Maximize medical treatment. 2. Follow up with the patient. MMODL / IJN: [id number] /
[2018-08-26 16:50] VITALS: BP 128/73; PULSE 46
--- NOTE | 2018-08-27 17:17 | P.GSHP ---
History of Present Illness H&P Date: 08/27/18 58yo male difficult time urinating after cardiac cath Hospital un[facility] to cath I couldnt either Cysto in office identified a stone stuck in the urethra I was unable to dislodge it He comes for an anesthetic cysto and stone removal with possible laser lithotripsy. Past Medical History Past Medical History: Atrial Fibrillation, Diabetes Mellitus, Hyperlipidemia, Hypertension Additional Past Medical History / Comment(s): new dx. of A-fib in June per pt. History of Any Multi-Drug Resistant Organisms: None Reported Past Surgical History: Appendectomy, Joint Replacement, Tonsillectomy Additional Past Surgical History / Comment(s): nasal polyps removed, left hip replaced, surg. to removed kidney stones, cardioversion Past Anesthesia/Blood Transfusion Reactions: No Reported Reaction Smoking Status: Never smoker - Past Family History Mother Family Medical History: Cancer, Deep Vein Thrombosis (DVT) Father Family Medical History: Coronary Artery Disease (CAD), Myocardial Infarction ([place]) Additional Family Medical History / Comment(s): one month post CABG Medications and Allergies Home Medications Medication Instructions Recorded Confirmed Type Atorvastatin [Lipitor] 20 mg PO HS 05/27/15 08/26/18 History Losartan Potassium [Cozaar] 100 mg PO DAILY 05/27/15 08/26/18 History Beclomethasone Dipropionate [Qnasl] 2 spray EA NOSTRIL DAILY #0 05/30/15 08/26/18 History sitaGLIPtin [Januvia] 100 mg PO DAILY 04/23/17 08/26/18 History Metoprolol Succinate (ER) [Toprol 100 mg PO DAILY #30 tab.er.24h 06/20/18 08/26/18 Rx XL] Amiodarone [Cordarone] 200 mg PO HS 08/21/18 08/26/18 History Allergies Allergy/AdvReac Type Severity Reaction Status Date / Time No Known Allergies Allergy Verified 08/26/18 08:42 Surgical - Exam Vital Signs Temp Pulse Resp BP Pulse Ox 97.8 F 49 L 18 137/78 96 08/26/18 09:01 08/26/18 09:01 08/26/18 09:01 08/26/18 09:01 08/26/18 09:01 - General well developed, well nourished, moderate distress - Eyes PERRL - ENT no hearing loss - Neck no masses - Respiratory normal expansion, normal respiratory effort - Cardiovascular Rhythm: irregularly irregular - Abdomen Abdomen: soft, non tender - Genitourinary normal penis with no external lesions, testicles present Assessment and Plan Assessment: Impression: Urine retention secondary to a urethral stone lodged Plan anesthetic cysto with laser lithotripsy
== END ==
LOC: CATHCVL 08:11
PROVIDERS: ATTEND Internal Medicine Interventional Cardiology
DX: I25.10 Atherosclerotic heart disease of native coronary artery without angina pectoris (principal); I48.0 Paroxysmal atrial fibrillation; I42.8 Other cardiomyopathies; I10 Essential (primary) hypertension; E13.9 Other specified diabetes mellitus without complications; E78.5 Hyperlipidemia, unspecified; Z82.49 Family history of ischemic heart disease and other diseases of the circulatory system; E66.9 Obesity, unspecified; Z68.34 Body mass index [BMI] 34.0-34.9, adult; Z79.01 Long term (current) use of anticoagulants; Z79.84 Long term (current) use of oral hypoglycemic drugs; Z79.899 Other long term (current) drug therapy
CPT/HCPCS: 93458; 74018; C1769; C1894; J3010; J1644; Q9967; J2250

== ENCOUNTER 2018-08-27 17:28 | Observation (INO) | payer BC ==
[2018-08-27] MEDS ORDERED: SUCCINYLCHOLINE CHLORIDE 100 MG/5 ML SYR IV ONE (19:43)
[2018-08-27] MEDS ORDERED: ONDANSETRON 4 MG/2 ML VIAL ONE (19:43)
[2018-08-27] MEDS ORDERED: fentaNYL (PF) 50 MCG/ML 2 ML AMP ONE (19:43)
[2018-08-27] MEDS ORDERED: PROPOFOL 10 MG/ML 20 ML VIAL IV ONE (19:43)
[2018-08-27] MEDS ORDERED: LACTATED RINGERS 1,000 ML IV ONE (19:43)
[2018-08-27] MEDS ORDERED: LIDOCAINE 1% INJ 10MG/ML (20 ML MDV) ONE (19:43)
[2018-08-27] MEDS ORDERED: MIDAZOLAM 2 MG/2 ML VIAL ONE (19:43)
--- NOTE | 2018-08-27 20:12 | P.OP ---
Date of Procedure: 08/27/18 Preoperative Diagnosis: Urethral calculus Postoperative Diagnosis: Same Procedure(s) Performed: Cystoscopy with cystolithotripsy, small Anesthesia: ELVIS Surgeon: Roberto Miguel Pathology: other (Stone) Condition: stable Disposition: PACU Indications for Procedure: The patient is 58. He was in the hospital yesterday for cardiac cath and was complaining of prostate and penile pain. KUB was done suggesting a ureteral stone but he was having problems urinating. The nursing staff attempted to catheterize him but was unable to do so. He came to the office this afternoon. He had a residual 480 mL. I failed in catheterizing him. I attempted to dilate him with filiforms and followers as it felt as if he had a urethral stricture. This failed also. High the cystoscope the patient and identified a stone emanating from the prostatic urethra. He has had a previous TURP. 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 He comes for cystoscopy and removal of urethral stone as he is unable to urinate. Description of Procedure: The patient is brought to the operating suite. He is given a general endotracheal anesthesia. He is prepped and draped sterilely. Cystoscopy Foroblique lens and 19-English sheath is performed. The anterior urethra is no rmal down into the bulbar urethra where there is a false passage posteriorly. The stone that was in the strictured proximal urethra has fallen back into the bladder. The stricture is wide caliber and easily traverse with a 19-English scope. I passed through the previously operated on prostate. There is some apical tissue obstructing the prostate. Upon entering the bladder the elongated stone probably extensive 7 mm in diameter by a 1 cm in length is noted. With the cold cup biopsy forceps I'm able to crack the stone into tiny pieces and flushed out of the bladder. Bladder strain the patient's awake and returned recovery room good condition Impression successful cystoscopy lithotripsy. The patient be discharged home upon recovery and follow in the office in one week.
[2018-08-27 20:25] VITALS: RESP 16; TEMP 96.9
[2018-08-27 20:54] VITALS: BP 141/77; PULSE 47
--- NOTE | 2018-09-02 13:42 | P.GSHP ---
History of Present Illness H&P Date: 08/27/18 58yo male difficult time urinating after cardiac cath Hospital unale to cath I couldnt either Cysto in office identified a stone stuck in the urethra I was unable to dislodge it He comes for an anesthetic cysto and stone removal with possible laser lithotripsy. Past Medical History Past Medical History: Atrial Fibrillation, Diabetes Mellitus, Hyperlipidemia, Hypertension Additional Past Medical History / Comment(s): new dx. of A-fib in June per pt. History of Any Multi-Drug Resistant Organisms: None Reported Past Surgical History: Appendectomy, Joint Replacement, Tonsillectomy Additional Past Surgical History / Comment(s): nasal polyps removed, left hip replaced, surg. to removed kidney stones, cardioversion Past Anesthesia/Blood Transfusion Reactions: No Reported Reaction Smoking Status: Never smoker - Past Family History Father Family Medical History: Coronary Artery Disease (CAD), Myocardial Infarction ([place]) Additional Family Medical History / Comment(s): one month post CABG Mother Family Medical History: Cancer, Deep Vein Thrombosis (DVT) Medications and Allergies Home Medications Medication Instructions Recorded Confirmed Type Atorvastatin [Lipitor] 20 mg PO HS 05/27/15 08/27/18 History Losartan Potassium [Cozaar] 100 mg PO DAILY 05/27/15 08/27/18 History sitaGLIPtin [Januvia] 100 mg PO DAILY 04/23/17 08/27/18 History Metoprolol Succinate (ER) [Toprol 100 mg PO DAILY #30 tab.er.24h 06/20/18 08/27/18 Rx XL] Amiodarone [Cordarone] 200 mg PO HS 08/21/18 08/27/18 History Apixaban [Eliquis] 5 mg PO BID 08/27/18 08/27/18 History metFORMIN HCL 1,000 mg PO BID 08/27/18 08/27/18 History Allergies Allergy/AdvReac Type Severity Reaction Status Date / Time No Known Allergies Allergy Verified 08/27/18 20:50 Surgical - Exam Vital Signs Temp Pulse Resp BP Pulse Ox 97.8 F 49 L 18 137/78 96 08/26/18 09:01 08/26/18 09:01 08/26/18 09:01 08/26/18 09:01 08/26/18 09:01 - General well developed, well nourished, moderate distress - Eyes PERRL - ENT no hearing loss - Neck no masses - Respiratory normal expansion, normal respiratory effort - Cardiovascular Rhythm: irregularly irregular - Abdomen Abdomen: soft, non tender - Genitourinary normal penis with no external lesions, testicles present Assessment and Plan Assessment: Impression: Urine retention secondary to a urethral stone lodged Plan anesthetic cysto with laser lithotripsy
== END 2018-08-27 22:05 | disposition home or self-care (01) ==
LOC: 1SOBS 18:58
PROVIDERS: ADMIT Urology; ATTEND Urology
DX: N21.1 Calculus in urethra (principal); I48.91 Unspecified atrial fibrillation; I10 Essential (primary) hypertension; E78.5 Hyperlipidemia, unspecified; E11.9 Type 2 diabetes mellitus without complications; R33.9 Retention of urine, unspecified; Z79.84 Long term (current) use of oral hypoglycemic drugs; Z79.01 Long term (current) use of anticoagulants; Z79.899 Other long term (current) drug therapy; Z90.79 Acquired absence of other genital organ(s); Z96.642 Presence of left artificial hip joint; Z82.49 Family history of ischemic heart disease and other diseases of the circulatory system; Z80.9 Family history of malignant neoplasm, unspecified; Z83.2 Family history of diseases of the blood and blood-forming organs and certain disorders involving the immune mechanism
CPT/HCPCS: 52353; 82365; G0378; G0379; C1758; J2250; J2405; J2001; J3010; J0330; J2704

== ENCOUNTER → 2019-05-28 | Outpatient (CLI) | payer BC ==
--- NOTE | 2019-05-28 08:56 | XR ---
EXAMINATION TYPE: XR KUB DATE OF EXAM: 05/28/2019 8:49 AM CLINICAL HISTORY: Bladder calculus. TECHNIQUE: Two supine KUB images of the abdomen are obtained. COMPARISON: Abdominal x-ray August 26, 2018 FINDINGS: There are 2 adjacent calculi or left 12th rib lower pole left kidney measuring up to 7 mm i n size. Left ureter calculi less well seen on current study. No bladder calculi clearly identified. C urvilinear 3 mm calcification inferior to left sacroiliac joint possible dystrophic calcification is stable. No definite right-sided calculi. Overall nonobstructive bowel gas pattern. Metallic hardware from left hip arthroplasty redemonstrated . Advanced degenerative change right hip again seen with marked spurring head neck junction and marke d joint space loss and subchondral cystic change. IMPRESSION: As above.
== END | disposition home or self-care (01) ==
LOC: RADXRMAIN 08:35
PROVIDERS: ATTEND Urology
DX: N20.1 Calculus of ureter (principal); M53.3 Sacrococcygeal disorders, not elsewhere classified; Z98.890 Other specified postprocedural states
CPT/HCPCS: 74018

== ENCOUNTER 2020-06-10 06:52 | Day surgery (SDC) | payer BC ==
[2020-05-17 11:02] VITALS: BMI 35.9
[~2020-06-10 06:52] MED LIST changes: -ALPRAZolam 0.25 MG TAB PO PRN; -ALPRAZolam 0.5 MG TAB PO PRN; -ASPIRIN 325 MG TAB PO STA; -ATORVASTATIN 80 MG TAB PO STA; -HEPARIN SODIUM 1,000 UN/ML (10ML VL) IV ONE; -HEPARIN SODIUM 1,000 UN/ML (10ML VL) ONE; -IOPAMIDOL-370 125ML BTL INJ ONE; -IV FLUID CONTINUATION 800 ML IV ONE; +LACTATED RINGERS 1,000 ML IV SCH; -LIDOCAINE 1% INJ 10MG/ML (20 ML MDV) ONE; -MIDAZOLAM (PF) 2 MG/2 ML VIAL IV ONE; -NITROGLYCERIN SL TABS 0.4 MG TAB SUBLINGUAL PRN; -RX INFO: IV CONTRAST WAS GIVEN 1 EACH MISC MISCELLANE PRN; -SODIUM CHLORIDE 0.9% 1,000 ML IV SCH; -SODIUM CHLORIDE 0.9% 1,000 ML in EMPTY BAG 1 BAG IV ONE; -VERAPAMIL 2.5 MG/ML 2 ML AMP ONE; -fentaNYL (PF) 50 MCG/ML 2 ML AMP IV ONE; -fentaNYL (PF) 50 MCG/ML 2 ML AMP ONE
[2020-06-10 07:19] VITALS: TEMP 97.9
[2020-06-10 07:21] LABS: Glucose,Whole Blood 155 mg/dL (75-99)
[2020-06-10] MEDS ORDERED: PROPOFOL 10 MG/ML 20 ML VIAL IV ONE (07:54)
[2020-06-10] MEDS ORDERED: GLYCOPYRROLATE 0.2 MG/ML 2 ML VIAL ONE (07:54)
--- NOTE | 2020-06-10 08:06 | P.GSHP ---
History of Present Illness H&P Date: 06/10/20 Chief Complaint: Screening colonoscopy This a 59-year-old male who presents today for screening colonoscopy. Patient denies a significant GI complaints. Past Medical History Past Medical History: Atrial Fibrillation, Diabetes Mellitus, Hypertension Additional Past Medical History / Comment(s): hx kidney stones History of Any Multi-Drug Resistant Organisms: None Reported Past Surgical History: Appendectomy, Heart Catheterization, Joint Replacement, Tonsillectomy Additional Past Surgical History / Comment(s): nasal polyps removed, left hip replacement, surgery to removed kidney stones, jacob cataracts, COLONOSCOPY Past Anesthesia/Blood Transfusion Reactions: No Reported Reaction Smoking Status: Never smoker - Past Family History Mother Family Medical History: Cancer, Deep Vein Thrombosis (DVT) Father Family Medical History: Coronary Artery Disease (CAD) Additional Family Medical History / Comment(s): one month post CABG Sister(s) Family Medical History: Cancer Medications and Allergies Home Medications Medication Instructions Recorded Confirmed Type Atorvastatin [Lipitor] 20 mg PO DAILY 05/27/15 06/08/20 History Losartan Potassium [Cozaar] 100 mg PO DAILY 05/27/15 06/08/20 History sitaGLIPtin [Januvia] 100 mg PO DAILY 04/23/17 06/08/20 History Apixaban [Eliquis] 5 mg PO BID 08/27/18 06/08/20 History metFORMIN HCL 1,000 mg PO BID 08/27/18 06/08/20 History Amiodarone [Cordarone] 100 mg PO HS 05/17/20 06/08/20 History Metoprolol Succinate (ER) [Toprol 100 mg PO HS 05/17/20 06/10/20 History XL] Allergies Allergy/AdvReac Type Severity Reaction Status Date / Time No Known Allergies Allergy Verified 06/10/20 07:07 Surgical - Exam Vital Signs Temp Pulse Resp BP Pulse Ox 97.9 F 55 L 17 131/82 98 06/10/20 07:14 06/10/20 07:14 06/10/20 07:14 06/10/20 07:14 06/10/20 07:14 - General well developed, well nourished - Eyes PERRL - ENT normal pinna - Neck no masses - Respiratory normal expansion - Cardiovascular Rhythm: regular - Abdomen Abdomen: soft, non tender Results - Labs Abnormal Lab Results - Last 24 Hours (Table) 06/10/20 Range/Units 07:17 POC Glucose (mg/dL) 155 H (75-99) mg/dL Assessment and Plan Assessment: We'll perform screening colonoscopy.
--- NOTE | 2020-06-10 08:08 | P.OP ---
Date of Procedure: 06/10/20 Preoperative Diagnosis: Screening colonoscopy Postoperative Diagnosis: External hemorrhoids Mild diverticulosis Procedure(s) Performed: Colonoscopy Anesthesia: MAC Surgeon: Gomez Fang Pathology: none sent Condition: stable Disposition: PACU Description of Procedure: The patient's placed on the endoscopy table in the lateral position. She IV sedation. Digital rectal exam was performed which revealed external hemorrhoids. Prostate was symmetric without nodules Flexible colonoscope was then placed patient anus passed throughout the entire colon. The ileocecal valve was visualized. The cecum, ascending and transverse colon appeared normal. In the descending and sigmoid colon was mild diverticular changes. Scope was then brought back the rectum this appeared normal. Scope was withdrawn for patient.
[2020-06-10 08:42] VITALS: BP 138/82; PULSE 54; RESP 16
== END 2020-06-10 08:50 | disposition home or self-care (01) ==
LOC: ORWHC2ENDO 06:52
PROVIDERS: ATTEND Surgery
DX: Z12.11 Encounter for screening for malignant neoplasm of colon (principal); K57.30 Diverticulosis of large intestine without perforation or abscess without bleeding; K64.4 Residual hemorrhoidal skin tags; I48.91 Unspecified atrial fibrillation; E11.9 Type 2 diabetes mellitus without complications; I10 Essential (primary) hypertension; E78.5 Hyperlipidemia, unspecified; M19.90 Unspecified osteoarthritis, unspecified site; Z87.442 Personal history of urinary calculi; Z90.89 Acquired absence of other organs; Z98.890 Other specified postprocedural states; Z98.42 Cataract extraction status, left eye; Z98.41 Cataract extraction status, right eye; Z96.642 Presence of left artificial hip joint; Z82.49 Family history of ischemic heart disease and other diseases of the circulatory system; Z80.9 Family history of malignant neoplasm, unspecified; Z79.01 Long term (current) use of anticoagulants; Z79.84 Long term (current) use of oral hypoglycemic drugs; Z79.899 Other long term (current) drug therapy
CPT/HCPCS: J2704; G0121

== ENCOUNTER 2021-02-03 16:46 | Emergency (ER) | payer BC ==
[2021-02-03] MEDS ORDERED: SODIUM CHLORIDE 0.9% 50 ML IVPB ONE (19:00)
[2021-02-03] MEDS ORDERED: ACETAMINOPHEN TAB 500 MG TAB PO STA (19:20)
--- NOTE | 2021-02-03 19:20 | ED ---
General Adult HPI - General Chief complaint: Upper Respiratory Infection Stated complaint: SOB Time Seen by Provider: 02/03/21 18:09 Source: patient, RN notes reviewed, old records reviewed Mode of arrival: ambulatory Limitations: no limitations - History of Present Illness Initial comments: Patient is a 60-year-old male with past history remarkable for atrial fibrillation on anticoagulation, diabetes, hypertension and presents emergency department over concern for upper respiratory symptoms. He did receive both: Vaccination doses, however presents complaining of congestion, mild diarrhea, as well as a minimally productive cough. He states his been ongoing for the last 7 days. Patient was found to be Covid positive today. I evaluated him when he was placed in a room. He otherwise has no acute complaints at this time. Vital signs are normal and stable. Denies any chest pain, nausea, vomiting, headaches, numbness. Does endorse generalized fatigue which is been ongoing over the last week as well. He has no other acute complaints at this time. - Related Data Home Medications Medication Instructions Recorded Confirmed Atorvastatin [Lipitor] 20 mg PO DAILY 05/27/15 02/03/21 Losartan Potassium [Cozaar] 100 mg PO DAILY 05/27/15 02/03/21 sitaGLIPtin [Januvia] 100 mg PO DAILY 04/23/17 02/03/21 Apixaban [Eliquis] 5 mg PO BID 08/27/18 02/03/21 metFORMIN HCL [Glucophage] 1,000 mg PO BID 08/27/18 02/03/21 Amiodarone [Cordarone] 50 mg PO HS 05/17/20 02/03/21 Metoprolol Succinate (ER) [Toprol 100 mg PO DAILY 05/17/20 02/03/21 XL] Beclomethasone Dipropionate [Qnasl] 2 spray EA NOSTRIL DAILY 02/03/21 02/03/21 Sildenafil Citrate 100 mg PO DAILY PRN 02/03/21 02/03/21 Allergies Allergy/AdvReac Type Severity Reaction Status Date / Time No Known Allergies Allergy Verified 02/03/21 18:42 Review of Systems ROS Statement: Those systems with pertinent positive or pertinent negative responses have been documented in the HPI. Review of Systems: CONST: Denies fever EYES: Denies blurry vision ENT: Endorses nasal congestion C/V: Denies Chest pain RESP: Endorses cough GI: Denies abdominal pain : Denies dysuria SKIN: Denies rash. MSK: Denies joint pain. NEURO: Denies headache ROS Other: All systems not noted in ROS Statement are negative. Past Medical History Past Medical History: Atrial Fibrillation, Diabetes Mellitus, Hypertension Additional Past Medical History / Comment(s): hx kidney stones History of Any Multi-Drug Resistant Organisms: None Reported Past Surgical History: Appendectomy, Heart Catheterization, Joint Replacement, Tonsillectomy Additional Past Surgical History / Comment(s): nasal polyps removed, left hip replacement, surgery to removed kidney stones, jacob cataracts, COLONOSCOPY Past Anesthesia/Blood Transfusion Reactions: No Reported Reaction Past Psychological History: No Psychological Hx Reported Smoking Status: Never smoker Past Alcohol Use History: None Reported Past Drug Use History: None Reported - Past Family History Mother Family Medical History: Cancer, Deep Vein Thrombosis (DVT) Father Family Medical History: Coronary Artery Disease (CAD) Additional Family Medical History / Comment(s): one month post CABG Sister(s) Family Medical History: Cancer General Exam - General Exam Comments Initial Comments: General: Appears in no acute distress. HEAD: Normal with no signs of head trauma. EYES: PERRLA, EOMI, conjunctiva normal, no discharge. ENT: Hearing grossly intact, normal oropharynx. Nasal congestion. RESPIRATORY: Clear breath sounds bilaterally. No wheezes, rales, or rhonchi. C/V: Irregular rate and rhythm. S1 and S2 auscultated. No peripheral edema. Peripheral pulses are 2+ and intact throughout. ABD: Abd is soft, nontender, nondistended EXT: Normal range of motion, no obvious deformity SKIN: No rashes or lesions observed on exposed skin. NEURO: Alert and oriented x 4. Cranial nerves II-XII intact. No focal sensory or strength deficits. Limitations: no limitations Course Vital Signs 02/03/21 02/03/21 02/03/21 17:02 18:39 20:35 Temperature 99.7 F H 100.1 F H Pulse Rate 85 87 Respiratory 22 20 19 Rate Blood Pressure 145/65 101/71 O2 Sat by Pulse 96 92 L Oximetry Medical Decision Making - Medical Decision Making Based on the patient's presentation and physical exam, patient has a COVID-19 infection. Vital signs are within normal limits. He is not hypoxic. He'll be administered Tylenol for her mild fever, however I do not believe that he requires any further laboratory studies or imaging at this time. He was vaccinated. I discussed monoclonal antibody therapy for the patient and he was in agreement with this plan. He consented to the treatment. Patient will be given monoclonal antibody therapy, observed, and then discharged home. I instructed the patient to follow up with their PCP in the next 3 days. I explained that the patient should return to the emergency department if they experience any worsening symptoms. Strict return precautions were discussed with the patient. The patient expressed understanding of these instructions. I answered all questions that the patient had. The patient was discharged home in fair condition with their prescriptions and follow up information. - Lab Data Lab Results 02/03/21 Range/Units 17:09 Coronavirus (PCR) Detected A (Not Detectd) Disposition Clinical Impression: COVID-19 virus infection Disposition: HOME SELF-CARE Condition: Fair Instructions (If sedation given, give patient instructions): Coronavirus Disease 2019 (COVID-19) Is patient prescribed a controlled substance at d/c from ED?: No Referrals: Negrito Bullock DO [Primary Care Provider] - 1-2 days
[2021-02-03] MEDS ORDERED: CASIRIVIMAB (REGN10933) (EUA) 600 MG, IMDEVIMAB (REGN10987) (EUA) 600 MG in SODIUM CHLO... IVPB ONE (19:30)
[2021-02-03 20:37] VITALS: BP 101/71; PULSE 87; RESP 19; TEMP 100.1
== END 2021-02-03 20:36 | disposition home or self-care (01) ==
LOC: EC 16:46
DX: U07.1 COVID-19 (principal); E11.9 Type 2 diabetes mellitus without complications; I10 Essential (primary) hypertension; I48.91 Unspecified atrial fibrillation; Z79.01 Long term (current) use of anticoagulants; Z79.84 Long term (current) use of oral hypoglycemic drugs; Z79.899 Other long term (current) drug therapy
CPT/HCPCS: 87635; 96360; 99284; Q0243

== ENCOUNTER 2021-02-07 10:25 | Emergency (ER) | payer BC ==
[2021-02-07 13:14] VITALS: TEMP 97.5
--- NOTE | 2021-02-07 13:51 | XR ---
EXAMINATION TYPE: XR chest 2V DATE OF EXAM: 02/07/2021 COMPARISON: Chest x-ray June 16, 2018 HISTORY: Weakness. Cough. Shortness of breath. TECHNIQUE: Frontal and lateral views of the chest are obtained. FINDINGS: There aren't new bilateral multifocal confluent opacities greatest in the left lung versus right lung greatest in the periphery. Slightly elevated left hemidiaphragm redemonstrated. The card iac silhouette size is mildly enlarged. The osseous structures are intact. IMPRESSION: Left greater than right multifocal and confluent predominant peripheral opacities consis tent with covid-19 infection are now present.
[2021-02-07] MEDS ORDERED: ALBUTEROL HFA INHALER INHALATION STA (18:13)
[2021-02-07] MEDS ORDERED: DEXAMETHASONE SOD PHOSPHATE 10 MG/ML 1 ML VIAL IVP SCH (18:15)
[2021-02-07] MEDS ORDERED: SODIUM CHLORIDE 0.9% 1,000 ML IV SCH (18:15)
--- NOTE | 2021-02-07 18:33 | ED ---
SOB HPI - General Chief Complaint: Shortness of Breath Stated Complaint: revisit - Covid+, SOB Source: family Mode of arrival: ambulatory Limitations: no limitations - History of Present Illness Initial Comments: 60-year-old male presents to the emergency department with shortness of breath. Patient was seen on the for similar complaint and found to be Covid positive. Patient did receive antibodies that day. is at bedside and the patient has had increased work of breathing. She states that she is a nurse and she feels as if the patient has noisy lung sounds. He has had a poor appetite and has not been eating or drinking much. No fevers. No chest pain. Patient does not have any previous history of pulmonary issues. Has a history of A. fib and is on Eliquis. no vomiting. Patient is vaccinated. No other alleviating, precipitating or modifying factors - Related Data Home Medications Medication Instructions Recorded Confirmed Atorvastatin [Lipitor] 20 mg PO DAILY 05/27/15 02/07/21 Losartan Potassium [Cozaar] 100 mg PO DAILY 05/27/15 02/07/21 sitaGLIPtin [Januvia] 100 mg PO DAILY 04/23/17 02/07/21 Apixaban [Eliquis] 5 mg PO BID 08/27/18 02/07/21 metFORMIN HCL [Glucophage] 1,000 mg PO BID 08/27/18 02/07/21 Amiodarone [Cordarone] 50 mg PO HS 05/17/20 02/07/21 Metoprolol Succinate (ER) [Toprol 100 mg PO HS 05/17/20 02/07/21 XL] Beclomethasone Dipropionate [Qnasl] 2 spray EA NOSTRIL BID PRN 02/03/21 02/07/21 Sildenafil Citrate 100 mg PO DAILY PRN 02/03/21 02/07/21 methylPREDNISolone [Medrol Dose See Taper PO DIRECTED 02/07/21 02/07/21 Pack] Previous Rx's Medication Instructions Recorded Dexamethasone [Decadron] 6 mg PO DAILY #5 tablet 02/07/21 Allergies Allergy/AdvReac Type Severity Reaction Status Date / Time No Known Allergies Allergy Verified 02/07/21 18:21 Review of Systems ROS Statement: Those systems with pertinent positive or pertinent negative responses have been documented in the HPI. ROS Other: All systems not noted in ROS Statement are negative. Past Medical History Past Medical History: Atrial Fibrillation, Diabetes Mellitus, Hypertension Additional Past Medical History / Comment(s): hx kidney stones History of Any Multi-Drug Resistant Organisms: None Reported Past Surgical History: Appendectomy, Heart Catheterization, Joint Replacement, Tonsillectomy Additional Past Surgical History / Comment(s): nasal polyps removed, left hip replacement, surgery to removed kidney stones, jacob cataracts, COLONOSCOPY Past Anesthesia/Blood Transfusion Reactions: No Reported Reaction Past Psychological History: No Psychological Hx Reported Smoking Status: Never smoker Past Alcohol Use History: None Reported Past Drug Use History: None Reported - Past Family History Mother Family Medical History: Cancer, Deep Vein Thrombosis (DVT) Father Family Medical History: Coronary Artery Disease (CAD) Additional Family Medical History / Comment(s): one month post CABG Sister(s) Family Medical History: Cancer General Exam Limitations: no limitations Course Vital Signs 02/07/21 02/07/21 02/07/21 13:09 20:00 21:28 Temperature 97.5 F L Pulse Rate 82 80 Respiratory 22 20 20 Rate Blood Pressure 102/69 123/82 O2 Sat by Pulse 92 L 94 L Oximetry Medical Decision Making - Medical Decision Making Upon arrival patient was placed into room 7. A thorough history and physical exam was performed. IV is established patient given a 500 bag of normal saline. Patient is maintained saturations of 92-94%. He is given 6 mg of Decadron. Albuterol inhaler ordered. Labs are reviewed. White blood cell count mildly elevated at 12.8. Lactic acid 2.7. Patient does have a cavity with a creatinine of 1.8. D-dimer is 1.19. This value is used as a prognostic factor for covid. I did discuss results with the patient. I did offer admission however the patient states that he would prefer to go home at this time. Patient is given the albuterol inhaler to take. He'll be placed on Decadron. He is to stop taking the Medrol Dosepak. The is going to buy a pulse ox. Instructed to return for any oxygenation in the 80s. Family agreed to the benita tment plan the patient was discharged home in stable condition - Lab Data Result diagrams: 02/07/21 19:20 02/07/21 19:20 Lab Results 11/30/21 11/30/21 11/30/21 Range/Units 19:20 19:20 19:20 WBC 12.8 H (3.8-10.6) k/uL RBC 5.33 (4.30-5.90) m/uL Hgb 15.9 (13.0-17.5) gm/dL Hct 47.6 (39.0-53.0) % MCV 89.5 (80.0-100.0) fL MCH 29.9 (25.0-35.0) pg MCHC 33.4 (31.0-37.0) g/dL RDW 13.2 (11.5-15.5) % Plt Count 328 (150-450) k/uL MPV 8.1 Neutrophils % 90 % Lymphocytes % 4 % Monocytes % 4 % Eosinophils % 0 % Basophils % 0 % Neutrophils # 11.5 H (1.3-7.7) k/uL Lymphocytes # 0.5 L (1.0-4.8) k/uL Monocytes # 0.5 (0-1.0) k/uL Eosinophils # 0.0 (0-0.7) k/uL Basophils # 0.1 (0-0.2) k/uL D-Dimer 1.19 H (<0.60) mg/L FEU Sodium 138 (137-145) mmol/L Potassium 4.4 (3.5-5.1) mmol/L Chloride 105 (98-107) mmol/L Carbon Dioxide 21 L (22-30) mmol/L Anion Gap 12 mmol/L BUN 52 H (9-20) mg/dL Creatinine 1.88 H (0.66-1.25) mg/dL Est GFR (CKD-EPI)AfAm 44 (>60 ml/min/1.73 sqM) Est GFR (CKD-EPI)NonAf 38 (>60 ml/min/1.73 sqM) Glucose 288 H (74-99) mg/dL Lactic Ac Sepsis Rflx Plasma Lactic Acid Darrick (0.7-2.0) mmol/L Calcium 9.4 (8.4-10.2) mg/dL Total Bilirubin 0.8 (0.2-1.3) mg/dL AST 19 (17-59) U/L ALT 20 (4-49) U/L Alkaline Phosphatase 75 (38-126) U/L Total Protein 6.4 (6.3-8.2) g/dL Albumin 3.2 L (3.5-5.0) g/dL 02/07/21 02/07/21 Range/Units 19:20 20:04 WBC (3.8-10.6) k/uL RBC (4.30-5.90) m/uL Hgb (13.0-17.5) gm/dL Hct (39.0-53.0) % MCV (80.0-100.0) fL MCH (25.0-35.0) pg MCHC (31.0-37.0) g/dL RDW (11.5-15.5) % Plt Count (150-450) k/uL MPV Neutrophils % % Lymphocytes % % Monocytes % % Eosinophils % % Basophils % % Neutrophils # (1.3-7.7) k/uL Lymphocytes # (1.0-4.8) k/uL Monocytes # (0-1.0) k/uL Eosinophils # (0-0.7) k/uL Basophils # (0-0.2) k/uL D-Dimer (<0.60) mg/L FEU Sodium (137-145) mmol/L Potassium (3.5-5.1) mmol/L Chloride (98-107) mmol/L Carbon Dioxide (22-30) mmol/L Anion Gap mmol/L BUN (9-20) mg/dL Creatinine (0.66-1.25) mg/dL Est GFR (CKD-EPI)AfAm (>60 ml/min/1.73 sqM) Est GFR (CKD-EPI)NonAf (>60 ml/min/1.73 sqM) Glucose (74-99) mg/dL Lactic Ac Sepsis Rflx Y Plasma Lactic Acid Darrick 2.7 H* (0.7-2.0) mmol/L Calcium (8.4-10.2) mg/dL Total Bilirubin (0.2-1.3) mg/dL AST (17-59) U/L ALT (4-49) U/L Alkaline Phosphatase (38-126) U/L Total Protein (6.3-8.2) g/dL Albumin (3.5-5.0) g/dL - EKG Data EKG Comments: EKG demonstrates A. fib with rate of 94. QRS 82. QTC of 442. No acute ST segment elevations or depressions Disposition Clinical Impression: Acute kidney injury, COVID-19 Disposition: HOME SELF-CARE Condition: Fair Instructions (If sedation given, give patient instructions): Coronavirus Disease 2019 (COVID-19) Additional Instructions: You should purchase a pulse ox and check your oxygen level frequently. If you have a sustained oxygenation in the 80s, return to the emergency department. Take the Decadron as directed. Use the inhaler, 2 puffs every 4 hours. You can take zinc 50 mg daily. Return to the ed for any new or worsening symptoms. Prescriptions: Dexamethasone [Decadron] 6 mg PO DAILY #5 tablet Is patient prescribed a controlled substance at d/c from ED?: No Referrals: Negrito Bullock DO [Primary Care Provider] - 1-2 days Time of Disposition: 22:22
[2021-02-07 19:48] LABS: Basophils # (A) 0.1 k/uL (0-0.2); Basophils % (A) 0 %; Eosinophils % (A) 0 %; HCT 47.6 % (39.0-53.0); HGB 15.9 gm/dL (13.0-17.5); Lymphocytes # (A) 0.5 k/uL (1.0-4.8); Lymphocytes % (A) 4 %; MCH 29.9 pg (25.0-35.0); MCHC 33.4 g/dL (31.0-37.0); MCV 89.5 fL (80.0-100.0); Mean Platelet Volume 8.1; Monocytes # (A) 0.5 k/uL (0-1.0); Monocytes % (A) 4 %; Neutrophils # (A) 11.5 k/uL (1.3-7.7); Neutrophils % (A) 90 %; Platelet Count 328 k/uL (150-450); RBC 5.33 m/uL (4.30-5.90); RDW 13.2 % (11.5-15.5); WBC 12.8 k/uL (3.8-10.6)
[2021-02-07 19:57] LABS: Albumin 3.2 g/dL (3.5-5.0); Calcium 9.4 mg/dL (8.4-10.2); Potassium 4.4 mmol/L (3.5-5.1); Total Bilirubin 0.8 mg/dL (0.2-1.3); Total Protein 6.4 g/dL (6.3-8.2)
[2021-02-07 21:30] VITALS: BP 123/82; PULSE 80; RESP 20
== END 2021-02-07 22:40 | disposition home or self-care (01) ==
LOC: EC 10:25
DX: U07.1 COVID-19 (principal); N17.9 Acute kidney failure, unspecified; I48.91 Unspecified atrial fibrillation; E11.9 Type 2 diabetes mellitus without complications; I10 Essential (primary) hypertension; Z79.01 Long term (current) use of anticoagulants; Z79.84 Long term (current) use of oral hypoglycemic drugs; Z87.442 Personal history of urinary calculi; Z90.49 Acquired absence of other specified parts of digestive tract; Z96.642 Presence of left artificial hip joint
CPT/HCPCS: 99285; 96374; 36415; 94640; 93005; 85379; 80053; 83605; 85025; 71046; J1100

== ENCOUNTER → 2021-09-14 | Outpatient (CLI) | payer BC ==
--- NOTE | 2021-09-14 09:30 | XR ---
EXAMINATION TYPE: XR KUB DATE OF EXAM: 09/14/2021 HISTORY: Pain Comparison: None.Single KUB is submitted for interpretation. Findings: Right renal calculi: None Visualized. Right ureteral calculi: None Visualized. Left renal calculi: None Visualized. Left ureteral calculi: None Visualized. Pelvic calcifications: None Visualized. Bowel gas pattern is unremarkable. No free air. No mass effects. IMPRESSION: 1. No visible calculi seen at this time.
== END | disposition home or self-care (01) ==
LOC: RADXRMAIN 08:58
PROVIDERS: ATTEND Urology
DX: R10.9 Unspecified abdominal pain (principal)
CPT/HCPCS: 74018

== ENCOUNTER → 2021-11-10 | Outpatient (CLI) | payer BC ==
--- NOTE | 2021-11-10 12:38 | CT ---
EXAMINATION TYPE: CT abdomen pelvis wo con DATE OF EXAM: 11/10/2021 HISTORY: left flank pain and hematuria CT DLP: 1303.1 mGycm. Automated Exposure Control for Dose Reduction was Utilized. TECHNIQUE: CT scan of the abdomen and pelvis is performed without oral or IV contrast. COMPARISON: Abdominal x-ray September 14, 2021 FINDINGS: Within the limitations of a non-contrast study, the following observations are made. LUNG BASES: Mild to moderate posterior bibasilar linear scarring and/or atelectasis. Cardiomegaly is redemonstrated. LIVER/GB: Small benign thin-walled cysts throughout the right hepatic lobe. PANCREAS: Mild to moderate fat replaced atrophy. SPLEEN: No significant abnormality is seen. ADRENALS: No significant abnormality is seen. KIDNEYS: Group of roughly 7 adjacent small calculi in the lower pole right kidney coronal image 64 me asuring up to 6 mm in size on sagittal image 44. No right-sided hydronephrosis. There are 2 adjacent calculi lower pole left kidney coronal image 63 measuring up to 7 mm in size. Th ere is obstructing 19 mm calculus in the proximal left ureter coronal image 58 causing moderate to se shmuel left-sided hydronephrosis. I cannot identify calculi well on prior plain films. No intraluminal calculi in the urinary bladder. BOWEL: No significant abnormality is seen. GENITAL ORGANS: Central calcifications in a normal-sized prostate. LYMPH NODES: No greater than 1cm abdominal or pelvic lymph nodes are appreciated. OSSEOUS STRUCTURES: Metallic artifact from left hip arthroplasty causes streak artifact limiting eval uation of pelvic structures. Advanced degenerative change right hip with [id number] formation super iorly and prominent spurring at the head neck junction. Sacralized L5 segment with grade 1 anterolisthesis L4 on L5 and moderate disc space narrowing and vac uum disc phenomenon at this level. Bilateral pars defect labeled L4 level. Facet arthropathy lower khurram mbar levels. OTHER: Small fat-containing bilateral inguinal hernias. IMPRESSION:. Bilateral nephrolithiasis. There is a dominant 19 mm calculus in the proximal left urete r causing moderate to severe left-sided hydronephrosis. Nephrolithiasis not well seen on recent plain film and localizer image.
== END | disposition home or self-care (01) ==
LOC: RADCTMAIN 11:37
PROVIDERS: ATTEND Urology
DX: N13.2 Hydronephrosis with renal and ureteral calculous obstruction (principal)
CPT/HCPCS: 74176

== ENCOUNTER → 2021-11-27 | Outpatient (CLI) | payer BC ==
[2021-11-27 14:30] LABS: African American GFR (CKD) 24.9 (60.0-200.0); Anion Gap 9.5 mmol/L (10.00-18.00); BUN/Creat Ratio 13.52 Ratio (12.00-20.00); Blood Urea Nitrogen 40.3 mg/dL (9.0-27.0); Calcium 9.1 mg/dL (8.7-10.3); Carbon Dioxide 22.8 mmol/L (20.0-27.5); Non-African American GFR(CKD) 21.5 (60.0-200.0); Potassium 5.4 mmol/L (3.5-5.5)
[2021-11-27 16:57] LABS: Basophils # (A) 0.07 X 10*3/uL (0.00-0.10); Basophils % (A) 0.6 %; Eosinophils # (A) 0.39 X 10*3/uL (0.04-0.35); Eosinophils % (A) 3.2 %; HCT 45.2 % (39.6-50.0); HGB 14.9 g/dL (13.0-17.0); Immature Grans, Automated 0.4 %; Lymphocytes # (A) 1.76 X 10*3/uL (0.90-5.00); Lymphocytes % (A) 14.4 %; MCH 28.8 pg (27.0-32.0); MCV 87.3 fL (80.0-97.0); Mean Platelet Volume 10.2 fL (9.5-12.2); Monocytes # (A) 1.18 X 10*3/uL (0.20-1.00); Monocytes % (A) 9.7 %; NRBC Per 100 WBC 0 /100 WBCS (0.0-0.0); Neutrophils # (A) 8.76 X 10*3/uL (1.80-7.70); Neutrophils % (A) 71.7 %; Platelet Count 250 X 10*3/uL (140-440); RBC 5.18 X 10*6/uL (4.40-5.60); RDW 14.5 % (11.5-14.5); WBC 12.21 X 10*3/uL (4.50-10.00)
== END | disposition home or self-care (01) ==
LOC: LABPAT 08:26
PROVIDERS: ATTEND Urology
DX: Z01.812 Encounter for preprocedural laboratory examination (principal); N20.1 Calculus of ureter; R31.29 Other microscopic hematuria
CPT/HCPCS: 36415; 80048; 85025

== ENCOUNTER 2021-12-06 05:56 | Day surgery (SDC) | payer BC ==
[2021-12-01 15:36] VITALS: BMI 35.6
--- NOTE | 2021-12-05 20:51 | P.GSHP ---
History of Present Illness H&P Date: 12/05/21 61 yo male with a istory of stones who has had left flank pain. He was identified with a large left proximal ureteral stone.with obstruction as well as small left llp renal stones. He comes for left ureteroscopy with laser lithotripsy - Constitutional Constitutional: Denies chills, Denies fever - EENT Eyes: denies blurred vision, denies pain Ears, nose, mouth and throat: Denies headache, Denies sore throat - Cardiovascular Cardiovascular: Denies chest pain, Denies shortness of breath - Respiratory Respiratory: Denies cough, Denies 7 - Gastrointestinal Gastrointestinal: Denies abdominal pain, Denies diarrhea, Denies nausea, Denies vomiting - Genitourinary (Female) Genitourinary: Denies dysuria, Denies hematuria - Genitourinary (Male) Genitourinary: Denies dysuria, Denies hematuria - Musculoskeletal Musculoskeletal: Denies myalgias - Integumentary Integumentary: Denies pruritus, Denies rash - Neurological Neurological: Denies numbness, Denies weakness - Psychiatric Psychiatric: Denies anxiety, Denies depression - Endocrine Endocrine: Denies fatigue, Denies weight change Past Medical History Past Medical History: Atrial Fibrillation, Diabetes Mellitus, Hypertension Additional Past Medical History / Comment(s): Hx of and current kidney stones. History of Any Multi-Drug Resistant Organisms: None Reported Past Surgical History: Appendectomy, Heart Catheterization, Joint Replacement, Tonsillectomy Additional Past Surgical History / Comment(s): Nasal polyps removed, left hip replacement, surgery to remove kidney stones, bilateral cataract surgery. COLONOSCOPY Past Anesthesia/Blood Transfusion Reactions: No Reported Reaction Past Psychological History: No Psychological Hx Reported Smoking Status: Never smoker Past Alcohol Use History: None Reported Past Drug Use History: None Reported - Past Family History Mother Family Medical History: Cancer, Deep Vein Thrombosis (DVT) Father Family Medical History: Coronary Artery Disease (CAD) Additional Family Medical History / Comment(s): one month post CABG. Sister(s) Family Medical History: Cancer Medications and Allergies Home Medications Medication Instructions Recorded Confirmed Type Atorvastatin [Lipitor] 20 mg PO DAILY 05/27/15 12/01/21 History Losartan Potassium [Cozaar] 100 mg PO QAM 05/27/15 12/01/21 History sitaGLIPtin [Januvia] 100 mg PO QAM 04/23/17 12/01/21 History Apixaban [Eliquis] 5 mg PO BID 08/27/18 12/01/21 History metFORMIN HCL [Glucophage] 1,000 mg PO BID 08/27/18 12/01/21 History Amiodarone [Cordarone] 50 mg PO HS 05/17/20 12/01/21 History Metoprolol Succinate (ER) [Toprol 100 mg PO HS 05/17/20 12/01/21 History XL] Beclomethasone Dipropionate [Qnasl] 2 spray EA NOSTRIL BID PRN 02/03/21 12/01/21 History Sildenafil Citrate 100 mg PO DAILY PRN 02/03/21 12/01/21 History Sodium Bicarbonate Unknown Dos 2 tab PO TID 12/01/21 12/01/21 History Allergies Allergy/AdvReac Type Severity Reaction Status Date / Time No Known Allergies Allergy Verified 12/01/21 15:40 Surgical - Exam - General well developed, well nourished, no distress - Eyes normal ocular movement, no icteric - ENT no hearing loss, no congestion - Neck no masses, trachea midline - Respiratory normal respiratory effort, clear to auscultation - Abdomen Abdomen: soft, non tender, no guarding, no rigid, no rebound - Integumentary no rash, no abnormal pigmentation - Neurologic no disoriented, no combative - Psychiatric oriented to time, oriented to person, oriented to place, speech is normal, memory intact Results - Imaging Abdominal x-ray: report reviewed, image reviewed CT scan - abdomen: report reviewed, image reviewed CT scan - pelvis: report reviewed, image reviewed Assessment and Plan Assessment: Impression: left obstructing ureteral stone and left llp renal stones. Plan: Left ureteroscopy with laser lithotripsy
--- NOTE | 2021-12-06 06:23 | XR ---
EXAMINATION TYPE: XR KUB DATE OF EXAM: 12/06/2021 COMPARISON: 09/14/2021 HISTORY: Left-sided pain TECHNIQUE: 2 view supine FINDINGS: There is no sign of intestinal obstruction or pneumoperitoneum. Fecal pattern is normal. Th ere is left hip prosthesis. No pathologic calcifications seen over the kidneys. There is severe osteo arthritis right hip joint. IMPRESSION: Nonacute abdomen. No adverse change.
[2021-12-06] MEDS ORDERED: ONDANSETRON 4 MG/2 ML VIAL ONE (06:51)
[2021-12-06] MEDS ORDERED: DEXAMETHASONE SOD PHOSPHATE 4 MG/ML 1 ML VIAL IVP ONE (06:55)
[2021-12-06] MEDS ORDERED: LACTATED RINGERS 1,000 ML IV ONE ×2 (06:55→08:30)
[2021-12-06 07:05] LABS: Glucose,Whole Blood 137 mg/dL (70-110)
[2021-12-06] MEDS ORDERED: LIDOCAINE 2% INJ 20 MG/ML (2 ML VIAL) ONE (07:26)
[2021-12-06] MEDS ORDERED: GLYCOPYRROLATE 0.2 MG/ML 2 ML VIAL ONE (07:26)
[2021-12-06] MEDS ORDERED: ROCURONIUM 10 MG/ML (5 ML VIAL) IV ONE (07:26)
[2021-12-06] MEDS ORDERED: PROPOFOL 10 MG/ML 20 ML VIAL IV ONE (07:26)
[2021-12-06] MEDS ORDERED: PHENYLEPHRINE-0.9% NACL SYG 1,000 MCG/10 ML SYRINGE ONE (07:26)
[2021-12-06] MEDS ORDERED: NEOSTIGMINE 1 MG/ML 10 ML VIAL ONE (07:26)
[2021-12-06] MEDS ORDERED: MIDAZOLAM 2 MG/2 ML VIAL ONE (07:26)
[2021-12-06] MEDS ORDERED: fentaNYL (PF) 50 MCG/ML 2 ML AMP ONE (07:26)
[2021-12-06] MEDS ORDERED: SUCCINYLCHOLINE CHLORIDE 200 MG/10 ML VIAL IV ONE (07:26)
[2021-12-06] MEDS ORDERED: IOPAMIDOL-370 50ML BTL MISCELLANE ONE (07:35)
--- NOTE | 2021-12-06 08:48 | P.OP ---
Date of Procedure: 12/06/21 Preoperative Diagnosis: Left ureteral calculus with obstruction Postoperative Diagnosis: Same Procedure(s) Performed: Cystoscopy, left retrograde pyelogram, left ureteroscopy laser lithotripsy, placement of 6 x 26 Anesthesia: ELVIS Surgeon: Roberto Miguel Estimated Blood Loss (ml): 0 Pathology: other (Stone) Condition: stable Disposition: PACU Indications for Procedure: The patient is 61. He has a history of stones. He had significant pain in the left flank. Computed tomography scan identified a 7 x 11 mm left midureteral stone. It is not seen on KUB today but he has not passed it. He comes for cystoscopy retrograde pyelogram probable ureteroscopy laser lithotripsy on the left side Description of Procedure: The patient is brought to the operating suite. He is given general anesthesia. He is prepped and draped sterilely. Cystoscopy with a Foroblique lens and 21- Qatari sheath identifies a normal anterior urethra. Prostate shows previous TURP. The bladder wall shows trabeculation in the left posterior wall diverticula. On fluoroscopy I cannot see the stone. Within a cone-tipped catheter and Isovue-M 300 a left retrograde pyelogram performed showing a filling defect in the ureter above the iliac vessels. I passed the semirigid u reteroscope up to the stone. With the 365 laser probe the stone was broken into tiny pieces. I flushed the fragments out. Once I get above the first stone there is a second stone lodged behind it probably of similar size of. With the same laser probe I break the stone into tiny fragments. I flushed the stones out of the ureter. I take a stone basket to basket the largest fragments up. Then of the procedure the no significant remaining fragments. There is a significant amount of edema where the stone had lodged. A stent will best be placed. Through the cystoscope and 035 wires passed up the left ureter into the kidney. Over the wires passed a 6 x 26 stent the coils in the kidney and in the bladder. The bladder strain. Stone fragments are sent to pathology. The patient is awakened and returned recovery room good condition. Tell her procedure well. Blood loss is minimal. He'll be discharged home upon recovery and found the office in one week for stent removal.
--- NOTE | 2021-12-06 08:54 | FL ---
EXAMINATION TYPE: FL guidance operating room DATE OF EXAM: 12/06/2021 CLINICAL HISTORY: Left ureter stone TECHNIQUE: Fluoroscopy. COMPARISON: Abdominal KUB x-ray earlier today. FINDINGS: Fluoroscopic guidance was provided during lithotripsy with ureter stent insertion procedur e performed by Dr. Miguel. A total of 10 seconds of fluoroscopic time was utilized during the procedu re and 3 spot images was acquired. Images acquired show portions of double-J left ureter stent. IMPRESSION: As Above.
[2021-12-06 08:55] VITALS: TEMP 96.9
[2021-12-06 09:09] LABS: Glucose,Whole Blood 153 mg/dL (70-110)
[2021-12-06 09:48] VITALS: BP 120/88; PULSE 56; RESP 18
== END 2021-12-06 11:01 | disposition home or self-care (01) ==
LOC: OR 05:56
PROVIDERS: ATTEND Urology
DX: N20.2 Calculus of kidney with calculus of ureter (principal); I48.91 Unspecified atrial fibrillation; E11.9 Type 2 diabetes mellitus without complications; I10 Essential (primary) hypertension; Z90.89 Acquired absence of other organs; Z95.5 Presence of coronary angioplasty implant and graft; Z98.890 Other specified postprocedural states; Z80.9 Family history of malignant neoplasm, unspecified; Z82.49 Family history of ischemic heart disease and other diseases of the circulatory system; Z79.899 Other long term (current) drug therapy; Z79.84 Long term (current) use of oral hypoglycemic drugs
CPT/HCPCS: 82365; 74018; 52356; C2625; C1758; C1769; J2250; J0330; J1100; J2710; J2405; J3010; J2370; J2704; Q9967; J2001

== ENCOUNTER → 2022-08-11 | Outpatient (CLI) | payer BC ==
[2022-08-11 10:38] LABS: African American GFR (CKD) 47 (>60 ml/min/1.73 sqM); Anion Gap 7 mmol/L; Blood Urea Nitrogen 30 mg/dL (9-20); Calcium 8.5 mg/dL (8.4-10.2); Carbon Dioxide 25 mmol/L (22-30); Chloride 109 mmol/L (98-107); Glucose 136 mg/dL (74-99); Non-African American GFR(CKD) 40 (>60 ml/min/1.73 sqM); Potassium 4.8 mmol/L (3.5-5.1); Sodium 141 mmol/L (137-145)
== END | disposition home or self-care (01) ==
LOC: LABPAT 08:53
PROVIDERS: ATTEND Internal Medicine Interventional Cardiology
DX: Z01.818 Encounter for other preprocedural examination (principal); Z76.89 Persons encountering health services in other specified circumstances
CPT/HCPCS: 80048

== ENCOUNTER 2022-08-14 08:32 | Day surgery (SDC) | payer BC ==
[2022-08-14 09:05] VITALS: TEMP 97.1
[2022-08-14 09:19] LABS: Glucose,Whole Blood 159 mg/dL (70-110)
[2022-08-14] MEDS ORDERED: LIDOCAINE 2% INJ 20 MG/ML (2 ML VIAL) ONE (09:26)
[2022-08-14] MEDS ORDERED: PROPOFOL 10 MG/ML 20 ML VIAL IV ONE (09:26)
--- NOTE | 2022-08-14 09:49 | P.PCN ---
Date of Procedure: 08/14/22 Operative Findings: Cardioversion Report Performing physician Jones Rosa M.D. Procedure performed Successful cardioversion of atrial fibrillation to normal sinus mechanism using 200 J at first attempt Indication Symptomatic atrial fibrillation Complication None Level of sedation The procedure was performed under deep sedation using propofol with SOLAR PROJECT MANAGER in the room Procedure description After obtaining an informed consent the patient was brought to the recovery room. Sedation was introduced using propofol with SOLAR PROJECT MANAGER in the room. Subsequently the patient cardioverted from atrial fibrillation to normal sinus mechanism using 200 J and first attempt Conclusion Successful cardioversion of atrial fibrillation to normal sinus mechanism using 200 J Postprocedure management Continue the current medical regimen Continue oral anticoagulation Follow-up with the patient
[2022-08-14 11:20] VITALS: RESP 18
[2022-08-14 11:42] VITALS: BP 157/105; PULSE 48
== END 2022-08-14 11:55 | disposition home or self-care (01) ==
LOC: OR 08:32
PROVIDERS: ATTEND Internal Medicine Interventional Cardiology
DX: I48.91 Unspecified atrial fibrillation (principal)
CPT/HCPCS: 92960; J2704; J2001

== ENCOUNTER → 2023-05-21 | Outpatient (CLI) | payer BC ==
--- NOTE | 2023-05-23 23:01 | P.PCN ---
Date of Procedure: 05/21/23 Operative Findings: Home sleep study testing Date of services 05/21/2023 Pertinent history 62-year-old male patient presented to the office due to concerns of obstructive sleep apnea. The patient had loud snoring, sleep fragmentation and chronic hypersomnia sleepiness with an [place] score of 12 in addition to Mallampati class IV. Clinical suspicion for obstructive sleep apnea was high. Patient has chronic A-fib CHF with an EF of around 40% hypertension, hyperlipidemia, diabetes mellitus type 2. Technical description The [employer] apnea link system was used to complete this home sleep study. This is a type III home sleep study testing. Total recording duration was 8 hours and 37 minutes. The study started at 9:35 PM and ended at 6:13 AM. There was 8 hours and 25 minutes of flow monitoring and 8 hours and 24 minutes of oxygen saturation monitoring Pertinent physical findings The body mass index is 36.3 Results Respiratory analysis showed a total of 127 obstructive apneas and 180 obstructive hypopneas and the resulting AHI was 36.5 consistent with severe obstructive sleep apnea Oxygenation analysis The patient had a total of 268 oxygen desaturations with a positive drop in more than 4% with a minimum pulse ox of 84%. Average pulse ox during sleep was 92%. Baseline pulse ox while awake was 94%This patient spent approximately 11 minutes of sleep time below pulse ox of 89%. Cardiac summary Average heart rate was 67 with a minimum heart rate of 59 maximum heart rate was 90 Assessment Severe SALOMON with an AHI of 36.5 Nocturnal oxygen desaturation with a minimum pulse ox of 84% Chronic hypersomnia with an [place] score of 12 Obesity with a BMI of 36.3 CHF with an EF of around 40%, normal coronaries Chronic A-fib, failed cardioversion Hypertension Hyperlipidemia Diabetes mellitus type 2 Plan Will asked the patient to come into the sleep center to undergo CPAP titration in preparation for CPAP therapy. The patient would likely benefit from CPAP therapy. Encouraged weight loss. Treat comorbidities. Maintain regular sleep schedule. Maintain good sleep hygiene measures. Will follow.
== END | disposition home or self-care (01) ==
LOC: 3 N SLEEP 16:50
PROVIDERS: ATTEND Internal Medicine Critical Care Medicine
DX: G47.33 Obstructive sleep apnea (adult) (pediatric) (principal); G47.10 Hypersomnia, unspecified; G47.36 Sleep related hypoventilation in conditions classified elsewhere; E66.9 Obesity, unspecified; I11.0 Hypertensive heart disease with heart failure; I50.9 Heart failure, unspecified; E78.5 Hyperlipidemia, unspecified; E11.9 Type 2 diabetes mellitus without complications; I48.20 Chronic atrial fibrillation, unspecified; Z68.36 Body mass index [BMI] 36.0-36.9, adult; Z79.01 Long term (current) use of anticoagulants; Z79.84 Long term (current) use of oral hypoglycemic drugs; Z79.899 Other long term (current) drug therapy

== ENCOUNTER 2023-06-25 19:37 | Outpatient (CLI) | payer BC ==
--- NOTE | 2023-07-02 13:43 | P.PCN ---
Date of Procedure: 06/25/23 Operative Findings: CPAP titration report Date of services 06/25/2023 History This patient was diagnosed having severe SALOMON with an AHI of 36. The patient is coming in to undergo a CPAP titration. Adin score is at 12. Pertinent physical findings the patient has a height of 5 feet and 9 inches, weight is 246 and a body mass index of 36 Technical description The patient was studied using a standard complex polysomnography protocol that included recording of the 2 EKG, Central, occipital and frontal EEG, right and left outer canthus EOG, submental EMG, right and left anterior tibialis EMG, respiratory airflow by thermocouple and or pressure/flow transducer, respiratory efforts by abdominal and thoracic PVDF belts, oxygen saturation by cable oximetry. Position by observation synchronized the PSG. Stepwise CPAP titration was done to eliminate obstructive respiratory events. Equipment used: Coupsta. Sleep characteristics The total recording duration was: 26.5 minutes. The sleep time was 4 to 3.0 minutes. The overall sleep efficiency was 94.5%. The wake after sleep onset t damián was 50 minutes. The patient's sleep latency was 8 minutes and the latest REM sleep was 74.5 minutes. Sleep architecture was catheterized by 6.5% stage I, 65.5% stage II, 0% stage III and XX 8% REM sleep. The total arousal index was 4.2 CPAP titration summary The patient was started on CPAP therapy initially at a pressure of 5 cm of water and pressure was gradually increased by increments of 1 cm to reach a maximum CPAP pressure of 13 cm of water. I carefully reviewed the titration taken, the patient sleep stage and body position. There was considerable improvement in the patient obstructive respiratory events at the pressures of 11, 12 and 13 cm of water. There was also limitation of the obstructive respiratory events with some few occasional hypopneas. This was a successful titration as the patient encountered REM and non-REM sleep. The titration was done in various body position including supine body position. Oxygenation improved. Sleep continue with the summary The overall respiratory arousal index was 0.4. There were a total of 28 arousals with an arousal index of 4.2 Periodic limb movements There were excessive periodic limb movement activity a total of 472 with an index of 70.3. There were only 3 periodic limb movements with arousals with index of 0.4 Cardiac summary Average heart rate was 68 with a minimum heart rate of 60 and a maximum heart of 75, the patient was in atrial fibrillation. Assessment Severe symptomatic SALOMON with an AHI of 36.5. The patient underwent a successful CPAP titration. Chronic hypersomnia with an Adin score of 12 BMI of 36.3 CHF with impaired LV function with an ejection fraction of 40% Chronic A-fib Hypertension Hyperlipidemia Diabetes mellitus type 2 Plan Initiate CPAP therapy. The patient is going to be offered an APAP machine and this will be sent in between pressures of 7 and 13 cm of water. The patient is going to be provided a large size AirFit F20 fullface mask the patient will see him back in the office in 30 to 90 days to assess clinical response and compliancy. Will make further adjustments based on the patient's overall clinical response.
== END 2023-06-26 05:30 | disposition home or self-care (01) ==
LOC: 3 N SLEEP 19:37
PROVIDERS: ATTEND Internal Medicine Critical Care Medicine
DX: G47.33 Obstructive sleep apnea (adult) (pediatric) (principal); G47.10 Hypersomnia, unspecified; I48.20 Chronic atrial fibrillation, unspecified; I50.9 Heart failure, unspecified; E11.9 Type 2 diabetes mellitus without complications; E78.5 Hyperlipidemia, unspecified; I11.0 Hypertensive heart disease with heart failure; Z79.899 Other long term (current) drug therapy; Z68.36 Body mass index [BMI] 36.0-36.9, adult
CPT/HCPCS: 95811

== ENCOUNTER 2024-01-22 06:15 | Day surgery (SDC) | payer BC ==
[~2024-01-22 06:15] MED LIST changes: -LACTATED RINGERS 1,000 ML IV SCH; +SODIUM CHLORIDE 0.9% 500 ML 500 ML IV SCH
[2024-01-22] MEDS: IV FLUID CONTINUATION 1,000 ML IV ONE (06:40)
[2024-01-22 06:50] VITALS: TEMP 96.9
[2024-01-22 07:01] LABS: Glucose,Whole Blood 132 mg/dL (70-110)
[2024-01-22] MEDS: LACTATED RINGERS 1,000 ML IV SCH (07:18)
[2024-01-22] MEDS ORDERED: LIDOCAINE 1% INJ 10MG/ML (20 ML MDV) ONE (07:25)
[2024-01-22] MEDS ORDERED: PROPOFOL 10 MG/ML 20 ML VIAL IV ONE (07:25)
[2024-01-22 08:09] VITALS: RESP 16
[2024-01-22 09:17] VITALS: BP 127/85; PULSE 71
--- NOTE | 2024-01-22 09:32 | P.PCN ---
Date of Procedure: 01/22/24 Operative Findings: Cardioversion Report Performing physician Jones Rosa M.D. Procedure performed Attempted cardioversion of atrial fibrillation to normal sinus mechanism using 200 J x2 Indication Symptomatic atrial fibrillation Complication None Level of sedation The procedure was performed under deep sedation using propofol with PULP COOKER in the room Procedure description After obtaining an informed consent the patient was brought to the recovery room. Sedation was introduced using propofol with PULP COOKER in the room. Attempt attempting cardioversion of atrial fibrillation to normal sinus mechanism was performed twice and was unsuccessful Postprocedure management Continue the current medical regimen Continue oral anticoagulation Follow-up with the patient
== END 2024-01-22 09:49 | disposition home or self-care (01) ==
LOC: OR 06:15
PROVIDERS: ATTEND Internal Medicine Interventional Cardiology
DX: I48.19 Other persistent atrial fibrillation (principal); I10 Essential (primary) hypertension; G47.33 Obstructive sleep apnea (adult) (pediatric); E78.5 Hyperlipidemia, unspecified; E11.9 Type 2 diabetes mellitus without complications; M19.90 Unspecified osteoarthritis, unspecified site; E66.3 Overweight; Z79.84 Long term (current) use of oral hypoglycemic drugs; Z79.01 Long term (current) use of anticoagulants; Z79.899 Other long term (current) drug therapy; Z82.49 Family history of ischemic heart disease and other diseases of the circulatory system; Z87.442 Personal history of urinary calculi
CPT/HCPCS: 92960; J2003; J2704

== ENCOUNTER → 2024-02-04 | Outpatient (CLI) | payer BC ==
[2024-02-04 15:20] LABS: ALT 30 U/L (10-49); AST 24 U/L (14-35); Albumin 4.2 g/dL (3.8-4.9); Albumin/Globulin Ratio 1.91 Ratio (1.60-3.17); Alkaline Phosphatase 111 U/L (41-126); BUN/Creat Ratio 18.24 Ratio (12.00-20.00); Bilirubin, Conjugated 0.38 mg/dL (0.20-0.40); Bilirubin,Unconjugated 1.12 mg/dL (0.20-1.00); Calcium 9.4 mg/dL (8.7-10.3); Carbon Dioxide 21.9 mmol/L (21.6-31.8); Chloride 109 mmol/L (96-109); Chol/HDL Ratio 3.24 Ratio; Globulin 2.2 g/dL (1.6-3.3); Glucose 168 mg/dL (70-110); LDL Cholesterol,Calculated 70.4 mg/dL (0.0-131.0); Potassium 5.3 mmol/L (3.5-5.5); Sodium 143 mmol/L (135-145); Total Bilirubin 1.5 mg/dL (0.3-1.2); Total Protein 6.4 g/dL (6.2-8.2)
[2024-02-04 16:47] LABS: HGB 19.3 g/dL (13.0-17.0); MCH 27.8 pg (27.0-32.0); MCHC 31.6 g/dL (32.0-37.0); MCV 87.9 FL (80.0-97.0); NRBC Per 100 WBC 0 X 10*3/uL (0.00-0.01); Platelet Count 222 X 10*3/uL (140-440); RBC 6.94 X 10*6/uL (4.40-5.60); RDW 17.5 % (11.5-14.5); WBC 9.42 X 10*3/uL (4.50-10.00)
== END | disposition home or self-care (01) ==
LOC: LABWHC1 08:07
PROVIDERS: ATTEND Internal Medicine Interventional Cardiology
DX: E78.5 Hyperlipidemia, unspecified (principal)
CPT/HCPCS: 36415; 80048; 80061; 80076; 85027

== ENCOUNTER → 2024-02-15 | Outpatient (CLI) | payer BC ==
[2024-02-15 10:16] LABS: Basophils % (A) 1 %; Eosinophils # (A) 0.4 k/uL (0-0.7); Eosinophils % (A) 4 %; HGB 18.4 gm/dL (13.0-17.5); Lymphocytes # (A) 1.5 k/uL (1.0-4.8); Lymphocytes % (A) 18 %; MCHC 32.6 g/dL (31.0-37.0); Monocytes # (A) 0.7 k/uL (0-1.0); Monocytes % (A) 8 %; Neutrophils # (A) 5.5 k/uL (1.3-7.7); Neutrophils % (A) 67 %; Platelet Count 199 k/uL (150-450); RBC 6.57 m/uL (4.30-5.90); RDW 15.5 % (11.5-15.5); WBC 8.3 k/uL (3.8-10.6)
[2024-02-15 10:22] LABS: HCT 56.5 % (39.0-53.0)
[2024-02-15 10:51] LABS: INR 1.1 (<1.2)
[2024-02-15 11:14] LABS: Prothrombin Time 11.9 sec (10.0-12.5)
== END | disposition home or self-care (01) ==
LOC: LABWHC1 09:22
PROVIDERS: ATTEND Nurse Practitioner Family
DX: Z01.812 Encounter for preprocedural laboratory examination (principal); R71.8 Other abnormality of red blood cells; Z96.641 Presence of right artificial hip joint
CPT/HCPCS: 36415; 82668; 85025; 85610

== ENCOUNTER 2024-03-02 07:16 | Day surgery (SDC) | payer BC ==
[~2024-03-02 07:16] MED LIST changes: -SODIUM CHLORIDE 0.9% 500 ML 500 ML IV SCH; +TRANEXAMIC 1,000 MG/100ML-NACL 1,000 MG in SALINE 1 100ML.BAG IVPB PRN
[2024-03-02] MEDS: LIDOCAINE 1% (10MG/ML) FOR IV START INTRADERMA PRN (07:55)
[2024-03-02] MEDS: IV FLUID CONTINUATION 1,000 ML IV ONE ×2 (07:55→17:38)
[2024-03-02] MEDS: LACTATED RINGERS 1,000 ML IV SCH (07:55)
[2024-03-02] MEDS: MELOXICAM 7.5 MG TAB PO PRN (08:05)
[2024-03-02] MEDS: ACETAMINOPHEN TAB 500 MG TAB PO PRN (08:05)
[2024-03-02] MEDS: GABAPENTIN 300 MG CAP PO PRN (08:05)
[2024-03-02] MEDS: ONDANSETRON 4 MG/2 ML VIAL IVP ONE (08:05)
[2024-03-02] MEDS: DEXAMETHASONE SOD PHOSPHATE 4 MG/ML 1 ML VIAL IVP STA (08:06)
[2024-03-02 08:12] LABS: Glucose,Whole Blood 157 mg/dL (70-110)
[2024-03-02 08:21] LABS: Basophils % (A) 1 %; Eosinophils # (A) 0.4 k/uL (0-0.7); Eosinophils % (A) 5 %; HGB 18.7 gm/dL (13.0-17.5); Lymphocytes # (A) 1.5 k/uL (1.0-4.8); Lymphocytes % (A) 19 %; MCH 28.6 pg (25.0-35.0); MCHC 33.3 g/dL (31.0-37.0); MCV 85.8 fL (80.0-100.0); Mean Platelet Volume 7.9; Monocytes # (A) 0.6 k/uL (0-1.0); Monocytes % (A) 7 %; Neutrophils # (A) 5.2 k/uL (1.3-7.7); Neutrophils % (A) 66 %; Platelet Count 205 k/uL (150-450); RBC 6.56 m/uL (4.30-5.90); RDW 15.7 % (11.5-15.5); WBC 7.9 k/uL (3.8-10.6)
[2024-03-02 08:25] LABS: Potassium 4.8 mmol/L (3.5-5.1)
[2024-03-02 08:26] LABS: HCT 56.3 % (39.0-53.0)
[2024-03-02 08:36] LABS: INR 1.1 (<1.2); Partial Thromboplastin Time 22.9 sec (22.0-30.0); Prothrombin Time 11.7 sec (10.0-12.5)
[2024-03-02] MEDS: MIDAZOLAM 2 MG/2 ML VIAL IV ONE (08:47)
[2024-03-02] MEDS: fentaNYL (PF) 50 MCG/ML 2 ML AMP IVP PRN (08:47)
[2024-03-02] MEDS ORDERED: HYDROmorphone 1 MG/ML 1 ML SYRINGE IVP PRN (08:51)
[2024-03-02] MEDS ORDERED: NALOXONE 0.4 MG/ML 1 ML VIAL IV PRN (08:51)
[2024-03-02] MEDS ORDERED: MAGNESIUM HYDROXIDE 2,400 MG/30 ML CUP PO PRN (08:51)
[2024-03-02] MEDS ORDERED: ONDANSETRON 4 MG/2 ML VIAL IVP PRN (08:51)
[2024-03-02] MEDS ORDERED: HYDROmorphone 0.5 MG/0.5 ML SYRINGE IVP PRN ×2 (08:51)
[2024-03-02] MEDS ORDERED: HYDROcodone/APAP 7.5-325MG 1 EACH TAB PO PRN ×2 (08:53)
[2024-03-02] MEDS ORDERED: GLYCOPYRROLATE 0.2 MG/ML 2 ML VIAL ONE (09:13)
[2024-03-02] MEDS ORDERED: fentaNYL (PF) 50 MCG/ML 2 ML AMP ONE (09:13)
[2024-03-02] MEDS ORDERED: ROPIVACAINE 5 MG/ML 30 ML VIAL ONE (09:13)
[2024-03-02] MEDS ORDERED: SUCCINYLCHOLINE CHLORIDE 200 MG/10 ML VIAL IV ONE (09:13)
[2024-03-02] MEDS ORDERED: ROCURONIUM 10 MG/ML (5 ML VIAL) IV ONE (09:13)
[2024-03-02] MEDS ORDERED: TRANEXAMIC 1,000 MG/100ML-NACL PREMIX BAG ONE (09:13)
[2024-03-02] MEDS ORDERED: NEOSTIGMINE 1 MG/ML 10 ML VIAL ONE (09:13)
[2024-03-02] MEDS ORDERED: PHENYLEPHRINE-0.9% NACL SYG 1,000 MCG/10 ML SYRINGE ONE (09:13)
[2024-03-02] MEDS ORDERED: LIDOCAINE 1% INJ 10MG/ML (20 ML MDV) ONE (09:13)
[2024-03-02] MEDS ORDERED: PROPOFOL 10 MG/ML 20 ML VIAL IV ONE (09:13)
[2024-03-02] MEDS ORDERED: HYDROmorphone (PF) 1 MG/ML ONE (09:13)
[2024-03-02] MEDS: ROPIVACAINE 5 MG/ML 30 ML VIAL MISCELLANE ONE ×2 (09:45→10:20)
[2024-03-02] MEDS: ceFAZolin 1,000 MG in SODIUM CHLORIDE 0.9% 1,000 ML IRRIGATION ONE (09:46)
[2024-03-02] MEDS: LACTATED RINGERS 1,000 ML IV ONE (10:15)
--- NOTE | 2024-03-02 10:33 | P.OP ---
Date of Procedure: 03/02/24 Preoperative Diagnosis: Severe osteoarthritis, right hip Postoperative Diagnosis: Severe osteoarthritis, right hip Procedure(s) Performed: Right total hip arthroplasty with a direct anterior approach Implants: [employer] Polarstem standard size 7 [employer] R3, 3 hole hemispherical acetabular shell, 60 mm [employer] Reflection 6.5 mm cancellus screws, 20 mm, 25 mm [employer] R3, XLPE 20 acetabular liner [employer] Oxinium femoral head 36 mm, +12 All components were press-fit. The articulation is Oxinium on polyethylene. Anesthesia: GETA Surgeon: Arnav Mleton Pharmacy Scheduler #1: Peyton Mendoza Estimated Blood Loss (ml): 450 Pathology: none sent Condition: stable Disposition: PACU Indications for Procedure: After failure of conservative treatment we discussed the surgical and nonsurgical treatment options at length. Patient wishes to proceed with a total hip arthroplasty with a direct anterior approach. Complications specific to this procedure were discussed at length, including but not limited to infection, leg length discrepancy, dislocation, nerve injury, and fracture. Covid-19 was also discussed at length with the patient, and they are aware of the current policies and procedures. The patient was given the option of delaying surgery, but they elect to proceed knowing these risks. Patient is aware of all these complications and informed consent was obtained Operative Findings: The operative findings are consistent with severe osteoarthritis of the right hip Description of Procedure: The patient was seen and evaluated in the preoperative area and the consent was reviewed. The operative site was marked with a skin marker. The patient verified the procedure and operative site. A PARVIZ block was placed by anesthesia in the preoperative area. The patient was then brought to the operating room and given preoperative antibiotics intravenously. 1 g of Tranexamic acid was also given intravenously. A general anesthetic was administered by the anesthesia department. The patient was then placed on the [place] table with the bony prominences well-padded. The hip area was then prepped with a ChloraPrep solution and draped in the usual sterile fashion. A universal timeout was then performed, which confirmed the patient's name, surgical site, ALLERGIES, and procedure being performed on the consent. Next the incision site was located at 1 cm distal and 4 cm lateral to the anterior superior iliac spine. The skin and subcutaneous tissues were sharply incised. Incision was carefully dissected down to the fascia overlying the tensor fascia dallas muscle. This fascia was then incised in line with the muscle fibers. Care was taken to stay laterally in order to avoid injuring the lateral femoral cuta neous nerve. Next, using blunt finger dissection, the tensor fascia dallas muscle was dissected off its investing fascia. The muscle was then carefully retracted laterally with a cobra retractor over the lateral neck of the femur. Next, the circumflex vessels were identified and cauterized using the Aquamantis device. The anterior hip capsule was then exposed. The capsule was then opened and an inverted T fashion. The retractors were then placed intracapsularly. The retractors were maintained intracapsular throughout the procedure. The proximal femur was then visualized. Fluoroscopic x-rays were then taken in order to evaluate the preoperative leg lengths. A small amount of traction was placed on the leg. The femoral neck was then osteotomized at the appropriate level above the lesser trochanter. A small wedge of bone was then removed from the remaining femoral head. Next, using a corkscrew the femoral head was removed from the acetabulum. On gross visual inspection, the femoral head had complete loss of articular cartilage and multiple periarticular osteophytes. The femoral head was then measured. Attention was then turned to the acetabulum. The acetabulum was exposed and any remaining labrum was excised. Sequential reaming of the acetabulum was performed using fluoroscopic guidance until there was a good bed of bleeding cancellus bone. When the appropriate size was reached, a trial was then placed. The position and fit of the trial was checked with fluoroscopy. The trial was then removed. Then, using fluoroscopic guidance, the final implant was impacted at 20 of anteversion and 40 of abduction, and fully seated in the acetabulum. 2 screws were then placed in the acetabulum. Again fluoroscopy was used to check position of the screws. Next, the liner was then impacted, with a 20 elevated liner located in the anterior superior quadrant. Component locking was confirmed. Attention was then directed to the femur. With the aid of the [place] table, the femur was externally rotated to approximately 130, extended, and adducted under the opposite leg. A side hook was then placed under the proximal femur, and the side hook elevator was used to elevate the proximal femur while releasing the capsule. Retractors were then placed. A capsular release was performed, as well as a release of the conjoined tendon, which afforded excellent visuali zation of the proximal femur. Next, a box osteotome was used to lateralize the proximal femur. A hand ii blocker was then used to locate the femoral canal. Sequential broaching was then performed with appropriate size which afforded excellent fixation in the proximal femur. A trial was then placed with appropriate head and neck, and the hip was gently reduced with the aid of the [place] table. Fluoroscopy was then used to check position of the components, as well as to evaluate the leg lengths and offset. The leg lengths and offset were measured as closely as possible to ensure stability of the hip. The hip was then gently dislocated and the trials were then removed. Final implants were then impacted and the hip was again reduced. Final fluoroscopic x-rays confirmed that the components were in anatomic position. The leg lengths and offset were measured and were found to coincide with the trial measurements. The hip was also taken through range of motion, and found to be stable. The hip was then copiously irrigated with antibiotic solution with pulsatile lavage. The hip was then irrigated with Irrisept solution. The soft tissues were then injected with a ropivacaine solution. A second dose of 1 g of Tranexamic acid was also given intravenously. The fascia was then closed with 2-0 strata fix suture. The subcutaneous tissue was closed with 3-0 Vicryl. The subcuticular tissue was closed with 3-0 moncryl suture. The skin was then closed with Exofin skin glue. After the glue and dried, and Optifoam silver impregnated dressing was applied. The patient was then transferred to the recovery room in stable condition. The assistant housekeeping manager JOANNE Fox was required due to the complexity of surgery, and the need for skilled surgical technology instructor for positioning, draping, exposure, retraction, and closure of the wound.
[2024-03-02] MEDS: HYDROmorphone 0.5 MG/0.5 ML SYRINGE IVP PRN (11:34)
--- NOTE | 2024-03-02 12:54 | P.ANPRN ---
Procedure Note - Anesthesia - Nerve Block Performed Right Blaise Single Time Out Performed: Yes ([id number]) Date of Procedure: 03/02/24 Procedure Start Time: 08:48 Procedure Stop Time: 08:52 Location of Patient: PreOp Indication: Acute Post-Operative Pain, Requested by Surgeon Specifically requested for management of pain by DrDavid: Arnav Melton Sedation Type: Sedate with meaningful contact maintained Preparation: Sterile Prep Position: Supine Catheter: None Needle Types: Pajunk Needle Gauge: 21 Ultrasound used to visualize needle placement: Yes Ultrasound used to observe medication spread: Yes Injectate: 0.5% Ropivacaine (see comment for volume) (30cc) Blood Aspirated: No Pain Paresthesia on Injection Noted: No Resistance on Injection: Normal Image Stored and Saved: Yes Events: Uneventful and Well Tolerated
--- NOTE | 2024-03-02 13:39 | FL ---
EXAMINATION TYPE: FL guidance operating room, XR Hip Limited RT DATE OF EXAM: 03/02/2024 10:41 AM COMPARISON: Chest radiographs from CLINICAL INDICATION: Male, 63 years old with history of RIGHT ANTERIOR HIP, , FINDINGS: fl time-1 min 2 sec dap- 5.1719 dr Melton rt anterior hip No images are provided [facility], , 03/02/2024 11:06 AM
[2024-03-02 14:50] LABS: Glucose,Whole Blood 171 mg/dL (70-110)
[2024-03-02] MEDS: SODIUM CHLORIDE 0.9% 1,000 ML IV SCH (15:25)
[2024-03-02] MEDS ORDERED: DEXTROSE 50% SYRINGE 50 ML IVP PRN ×2 (21:01)
[2024-03-02 21:19] LABS: Glucose,Whole Blood 240 mg/dL (70-110)
[2024-03-02] MEDS: METOPROLOL SUCCINATE (ER) 100 MG TAB.ER.24H PO SCH (22:12)
[2024-03-02] MEDS: SENNOSIDES-DOCUSATE SODIUM 1 EACH TAB PO SCH (22:12)
[2024-03-03 06:32] LABS: Glucose,Whole Blood 188 mg/dL (70-110)
[2024-03-03] MEDS: INSULIN ASPART (NovoLOG) 100 UNIT/ML VIAL SQ SCH (06:40)
[2024-03-03 07:18] VITALS: BP 130/89; PULSE 70; RESP 16; TEMP 98.1
[2024-03-03 08:16] LABS: HCT 51.7 % (39.6-50.0); HGB 15.6 g/dL (13.0-17.0); MCH 27.2 pg (27.0-32.0); MCHC 30.2 g/dL (32.0-37.0); MCV 90.1 FL (80.0-97.0); Mean Platelet Volume 11.2 FL (9.5-12.2); NRBC Per 100 WBC 0 X 10*3/uL (0.00-0.01); Platelet Count 197 X 10*3/uL (140-440); RBC 5.74 X 10*6/uL (4.40-5.60); RDW 16.1 % (11.5-14.5); WBC 17.29 X 10*3/uL (4.50-10.00)
[2024-03-03] MEDS: APIXABAN 5 MG TAB PO SCH (08:35)
[2024-03-03 08:54] LABS: Basophils # (A) 0.05 X 10*3/uL (0.00-0.10); Basophils % (A) 0.3 %; Eosinophils # (A) 0 X 10*3/uL (0.04-0.35); Eosinophils % (A) 0 %; Lymphocytes # (A) 1.26 X 10*3/uL (0.90-5.00); Lymphocytes % (A) 7.3 %; Neutrophils # (A) 13.99 X 10*3/uL (1.80-7.70); Neutrophils % (A) 80.9 %
--- NOTE | 2024-03-03 10:01 | P.DS ---
Providers Expected date of discharge: 03/03/24 Attending physician: Arnav Melton Consults: 03/02/24 15:06 Consult Physician Routine Consulting Provider: Teresita Martinez Consult Reason/Comments: medical management Do you want consulting provider notified?: Yes Primary care physician: Negrito Bullock - Discharge Diagnosis(es) (1) Osteoarthritis of right hip Current Visit: Yes Status: Acute (2) S/P total right hip arthroplasty Current Visit: Yes Status: Acute Hospital Course: This is a 63-year-old male with known history of degenerative arthritis of the right hip. The patient presented for evaluation as an outpatient. After discussion and consideration patient elects to proceed with total hip arthroplasty. The patient is seen preoperatively by Dr. Melton and medically cleared for surgery by their primary care physician. Patient is admitted to [facility] on 03/02/2024 for total hip arthroplasty. The procedure is performed without complication or sequelae. The patient is doing well postoperatively. Labs and vital signs are stable on day of discharge. On day of discharge patient's hip incision is healing well. There is minimal erythema. There is no drainage noted at this time. There is minimal soft tissue swelling to the hip and thigh. Patient has full foot and ankle motion without difficulty or pain. Calf is soft and nontender to palpation. Neurovascular status to the right lower extremity is intact. Patient is discharged home in good condition. Please see med rec for accurate list of home medications. Plan - Discharge Summary Discharge Rx Participant: No New Discharge Prescriptions: New HYDROcodone/APAP 7.5-325MG [Aiken 7.5-325] 1 - 2 tab PO Q6H PRN #32 tab PRN Reason: Pain Sennosides [Senokot] 2 tab PO DAILY PRN #60 tablet PRN Reason: Constipation Ondansetron Odt [Zofran Odt] 1 tab PO Q8HR PRN #10 tab PRN Reason: Nausea No Action Atorvastatin [Lipitor] 20 mg PO DAILY Losartan Potassium [Cozaar] 100 mg PO QAM metFORMIN HCL [Glucophage] 1,000 mg PO BID Apixaban [Eliquis] 5 mg PO BID Metoprolol Succinate (ER) [Toprol XL] 100 mg PO HS Sildenafil Citrate 100 mg PO DAILY PRN PRN Reason: E.D. Sodium Bicarbonate 975 mg PO TID Beclomethasone Dipropionate [Qnasl] 2 spray EA NOSTRIL DAILY Amoxicillin 2,000 mg PO DIRECTED PRN PRN Reason: dental work glipiZIDE 5 mg PO DAILY Empagliflozin [Jardiance] 10 mg PO DAILY Discharge Medication List Atorvastatin [Lipitor] 20 mg PO DAILY 05/27/15 [History] Losartan Potassium [Cozaar] 100 mg PO QAM 05/27/15 [History] Apixaban [Eliquis] 5 mg PO BID 08/27/18 [History] metFORMIN HCL [Glucophage] 1,000 mg PO BID 08/27/18 [History] Metoprolol Succinate (ER) [Toprol XL] 100 mg PO HS 05/17/20 [History] Beclomethasone Dipropionate [Qnasl] 2 spray EA NOSTRIL DAILY 02/03/21 [History] Sildenafil Citrate 100 mg PO DAILY PRN 02/03/21 [History] Amoxicillin 2,000 mg PO DIRECTED PRN 08/10/22 [History] Empagliflozin [Jardiance] 10 mg PO DAILY 01/17/24 [History] Sodium Bicarbonate 975 mg PO TID 01/17/24 [History] glipiZIDE 5 mg PO DAILY 01/17/24 [History] HYDROcodone/APAP 7.5-325MG [Aiken 7.5-325] 1 - 2 tab PO Q6H PRN #32 tab 03/02/24 [Rx] Ondansetron Odt [Zofran Odt] 1 tab PO Q8HR PRN #10 tab 03/02/24 [Rx] Sennosides [Senokot] 2 tab PO DAILY PRN #60 tablet 03/02/24 [Rx] Follow up Appointment(s)/Referral(s): Negrito Bullock DO [Primary Care Provider] - 1 Week (office is closed at time of discharge Please call to schedule appointment ) [facility] [NON-STAFF] - 1-2 Days ([facility] will call you to schedule your in home physical therapy visits.) Arnav Melton DO [Doctor of Osteopathic Medicine] - 03/18/24 9:50 am Activity/Diet/Wound Care/Special Instructions: Weightbearing as tolerated with walker. Leave dressing intact. Dressing may be removed by home care nurse or by patient in 7 days. Then change dressing twice daily until follow up. May shower with initial dressing intact and after removal. If dressing become saturated, please remove. Please resume Eliquis. Recommend use of compression stockings daily until follow up to help prevent swelling and blood clots. May remove at night before sleeping. Please follow-up with [facility] in 2 weeks and call with any questions or concerns, . Discharge Disposition: HOME WITH HOME HEALTH SERVICES
== END 2024-03-03 11:11 | disposition home health service (06) ==
LOC: OR 07:16 → 4SSUR 10:59 → OR 03-03 11:11
PROVIDERS: ATTEND Orthopaedic Surgery
DX: M16.11 Unilateral primary osteoarthritis, right hip (principal); I10 Essential (primary) hypertension; I48.91 Unspecified atrial fibrillation; E78.49 Other hyperlipidemia; G47.33 Obstructive sleep apnea (adult) (pediatric); F17.200 Nicotine dependence, unspecified, uncomplicated; N20.0 Calculus of kidney; E11.9 Type 2 diabetes mellitus without complications; Z99.89 Dependence on other enabling machines and devices; Z79.84 Long term (current) use of oral hypoglycemic drugs; Z79.01 Long term (current) use of anticoagulants; Z79.899 Other long term (current) drug therapy
CPT/HCPCS: 27130; 94660 ×2; 97161; 97166; 86900; 86901; 80051; 85025 ×2; 85610; 85730; 86850; 73501; J2250; J1100; J0690 ×2; J2405; J3010; J2795; J1171; 64999